=== PATIENT | female | born 1945 | race Caucasian/White ===

== ENCOUNTER 2021-10-20 19:09 | Inpatient (IN) ==
[2021-10-20] MEDS ORDERED: IOPAMIDOL 100 ML BOTTLE IV ONE (19:10)
--- NOTE | 2021-10-20 19:11 | Emergency Department Note ---
HPI General Chief complaint: Altered Mental Status Stated complaint: lethargy Time Seen by Provider: 10/20/21 19:11 Source: patient Mode of arrival: ambulatory Limitations: no limitations History of Present Illness HPI Narrative: 75-year-old female with past medical history of CHF with pacemaker and CKD presenting with generalized weakness. Family and patient have noted she has felt more generally weak and unsteady on her feet for the last week. Family was concerned so encouraged her to come to the ED. Patient states she had a fall a few months ago but no recent falls. Not on anticoagulation. She is on t razodone and lorazepam at night, family concerned this may be causing her change in mental status. No fever, cough, chest pain, abdominal pain, vomiting, dysuria, hematuria, or leg swelling. Denies prior history of IA or CVA. No other complaints. Related Data Home Medications Medication Instructions Recorded Confirmed carvedilol 3.125 mg tablet 3.125 mg PO BID 03/31/18 10/15/21 cranberry 400 mg capsule 400 mg PO QDAY 03/08/19 10/15/21 vit A 1,000 unit-C 200 mg-E 60 1 tab PO QDAY 03/08/19 10/15/21 unit-lutein 2 mg and minerals tablet (Vision Formula (with lutein)) cholecalciferol (vitamin D3) 50 2,000 unit PO QDAY cap 04/07/19 10/15/21 mcg (2,000 unit) capsule calcium carbonate 500 mg calcium 500 mg PO QDAY 04/23/21 10/15/21 (1,250 mg) tablet (Calcium 500) mirtazapine 15 mg tablet (Remeron) 15 mg PO QHS tab 04/23/21 10/15/21 multivitamin 1 tab PO QDAY 04/23/21 10/15/21 desipramine 50 mg tablet 50 mg PO QDAY tab 08/02/21 10/15/21 topiramate 100 mg tablet 100 mg PO QDAY tab 08/02/21 10/15/21 budesonide 3 mg 9 mg PO QDAY 10/15/21 10/15/21 capsule,delayed,extended release buspirone 5 mg tablet 5 mg PO BID 10/15/21 10/15/21 lorazepam 0.5 mg tablet 0.5 mg PO BID tab 10/15/21 10/15/21 trazodone 100 mg tablet 100 mg PO QHS tab 10/15/21 10/15/21 Previous Rx's Medication Instructions Recorded diphenoxylate-atropine 2.5 1 - 2 tab PO TID PRN #30 tab 05/13/21 mg-0.025 mg tablet (Lomotil) spironolactone 50 mg tablet 50 mg PO QAM #90 tab 08/02/21 famotidine 40 mg tablet 40 mg PO QDAY #90 tab 09/09/21 Allergies Allergy/AdvReac Type Severity Reaction Status Date / Time lactose Allergy Unknown Unknown Verified 10/20/21 19:13 spironolactone Allergy Unknown Diarrhea Verified 10/20/21 19:13 aspirin AdvReac Unknown Stomach Verified 10/20/21 19:13 pain, diarrhea Proton Pump Inhibitors AdvReac Worsening Verified 10/20/21 19:13 Collagenous Colitis Review of Systems ROS ROS Narrative: Narrative: Constitutional: Denies fever or chills Eyes: Denies vision change ENT ED: Denies throat pain Cardiovascular: Denies chest pain or palpitations Respiratory: Denies shortness of breath or cough Gastrointestinal: Denies abdominal pain, nausea or vomiting Genitourinary: Denies dysuria or frequency Musculoskeletal: Denies back pain or joint swelling Integumentary: Denies rash Neurological: Reports weakness; Denies headache, numbness or dizziness Psychiatric: Denies anxiety Endocrine: Reports fatigue Hematological/Lymphatic: Denies easy bleeding PFSH Narrative Patient History Narrative: Narrative: Medical/Surgical/Family History All Active Problems (Updated 10/21/21 @ 05:41 by Tre Gil MD) Otitis media (Chronic) Anemia (Chronic) Acid reflux (Chronic) Breast cancer (Chronic) Depression (Chronic) CHF (congestive heart failure) (Chronic) Insomnia (Chronic) Migraine (Chronic) Osteoporosis (Chronic) Collagenous colitis (Chronic) Geriatric health maintenance (Chronic) Vitamin D deficiency (Chronic) Hyperlipidemia (Chronic) Elevated serum creatinine (Chronic) Sinus infection (Chronic) RLS (restless legs syndrome) (Chronic) CKD (chronic kidney disease) (Chronic) LBBB (left bundle branch block) (Chronic) Dyspnea on exertion (Chronic) Peripheral cyanosis (Chronic) Cardiomyopathy (Chronic) Ulcerative colitis (Chronic) Cardiorenal syndrome with renal failure (Chronic) 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) Episode of syncope (Chronic) Cough secondary to angiotensin converting enzyme inhibitor (ANGELITA-I) (Chronic) Anxiety (Chronic) Hypokalemia with normal pH (Chronic) Hip bursitis, left (Chronic) CKD stage G3b/A2, GFR 30-44 and albumin creatinine ratio 30-299 mg/g (Chronic) Presence of cardiac defibrillator (Chronic) Chronic pain (Chronic) Low back pain (Chronic) Lumbar radiculopathy (Acute) Dizzy (Acute) Generalized weakness (Acute) Hyperbilirubinemia (Acute) UTI (urinary tract infection) (Acute) Pyuria (Acute) Medical History (Updated 10/21/21 @ 05:41 by Tre Gil MD) Acid reflux Anemia Anxiety Breast cancer 1978 Cardiomyopathy Cardiorenal syndrome with renal failure Great result with biventricular resynchronization therapy CHF (congestive heart failure) On ARB and low-dose beta-cinthia with loop diuretic PPM/AICD in place Chronic pain CKD (chronic kidney disease) Technically this is CKD G3 B/A2 on maximal ARB based on her systolic hypotension for renal protective and antiproteinuric effect Collagenous colitis Cough secondary to angiotensin converting enzyme inhibitor (ANGELITA-I) Stap ACEi Depression Dizzy Dyspnea on exertion Elevated serum creatinine Episode of syncope By Hx, vasovagal or post tussive or cardiogenic Fall Generalized weakness Geriatric health maintenance 08/2017 Hip bursitis, left History of tobacco use Hyperlipidemia Hypertensive heart and chronic kidney disease stage 3 Stable chronic kidney disease level III b Hypokalemia with normal pH Insomnia LBBB (left bundle branch block) Low back pain Lumbar radiculopathy Medicare annual wellness visit, initial Migraine Osteoporosis due to chemo, currently taking calcium and vitamin D 09/2016 Otitis media Peripheral cyanosis Presence of cardiac defibrillator Pyuria RLS (restless legs syndrome) Sinus infection Ulcerative colitis Vitamin D deficiency Surgical History H/O colonoscopy 2012 Dr. Kendrick, collagenous collitis repeat in 10 years H/O mastectomy 1979 Radical mastectomy with implant reconstruction revised 01/2016 H/O: hysterectomy Hx of breast implant 01/2016 Status post internal cardiac defibrillator procedure placed 11/2011 will have monthly interrogations due to being near the end of battery life Family History Mother Dementia Hypertension, essential Migraine Father Heart attack Grandmother Tuberculosis Maternal Social History Smoking Status: Former smoker Alcohol Intake Frequency: does not drink Substance Use: does not use Exam Narrative Narrative: Narrative: General Limitations: no limitations General appearance: Present alert and in no apparent distress Head Head: Present atraumatic and normocephalic Eye Eye: Present normal appearance, PERRL and EOMI; Absent scleral icterus, conjunctival injection or nystagmus ENT ENT: Present normal oropharynx and mucous membranes moist Neck Neck: Present normal inspection, full ROM and trachea midline; Absent meningismus or lymphadenopathy Chest Chest: Present symmetric chest wall rise Respiratory Respiratory: Present normal lung sounds bilaterally; Absent respiratory distress, wheezes, stridor, accessory muscle use or prolonged expiratory phase Cardiovascular Cardiovascular: Present regular rate and normal rhythm; Absent systolic murmur or diastolic murmur Adbominal Abdominal: Present soft; Absent distention, tenderness, guarding, rebound, rigidity, organomegaly or mass Extremities Extremities: Present normal inspection; Absent pretibial edema Back Back: Present normal inspection; Absent CVA tenderness (R), CVA tenderness (L) or spinous process tenderness Neurological Neurological: Present alert, oriented X3 and CN II-XII intact; Absent motor sensory deficit Expanded Neurological Patient oriented to: Present person, place and time Speech: Present fluid speech; Absent expressive aphasia or dysarthria CRANIAL NERVES: EOM function (II, III, IV, ): Normal, facial sensation (V): Normal, facial palsy (VII): Normal, gag reflex (IX): Normal, spinal accessory function (XI): Normal and tongue deviation (XII): Normal CEREBELLAR FUNCTION: finger to nose: Normal Motor strength - LUE: 5/5 Motor strength - RUE: 5/5 Motor strength - LLE: 5/5 Motor strength - RLE: 5/5 UPPER MOTOR NEURON EXAM: vangie neglect: Normal and pronator drift: Normal SENSORY EXAM UPPER EXTREMITY: Normal: light touch SENSORY EXAM LOWER EXTREMITY: Normal: light touch Coma Scale Eye Opening: Spontaneous Coma Scale Motor Response: Obeys Commands Coma Scale Verbal Response: Oriented Coma Scale Total: 15 Psychiatric Psychiatric: Present normal affect and normal mood Skin Skin: Present warm (WNL), dry and other (mild jaundice noted) Course Vital Signs Vital signs: Vital Signs Temperature 98.0 F 10/20/21 19:09 Pulse Rate 96 H 10/20/21 19:09 Respiratory Rate 20 10/20/21 19:09 Blood Pressure 145/69 10/20/21 19:09 Pulse Oximetry (%) 98 10/20/21 19:09 Temperature 98.0 F 10/20/21 19:09 Pulse Rate 98 H 10/21/21 06:00 Respiratory Rate 23 H 10/21/21 06:30 Blood Pressure 147/70 10/21/21 06:30 Pulse Oximetry (%) 99 10/21/21 06:00 MDM MDM Narrative Medical decision making narrative: 75-year-old female presenting with generalized weakness. Vital signs are normal, no fever or hypoxia. No focal neurologic deficits on exam. Will obtain labs, chest x-ray, UA, CT brain, EKG, and reevaluate. Labs notable for hyperbilirubinemia and elevated LFTs. CT of the abdomen obtained which shows marked biliary dilatation. UA shows signs of urinary infection, dose of IV Rocephin given. CT brain with no acute findings. Plan for admission for UTI and GI consultation as patient likely needs an MRCP or ERCP. GI will be available for consult later this morning, will continue to monitor the patient to the emergency department with the plan for consulting GI and admitting later this morning. 0650: Patient remains stable, GI consultation pending. Will sign out patient to oncoming , Dr. Browne. Lab Data Lab results reviewed: Yes I reviewed the patient's lab results. Result diagrams: 10/20/21 20:40 10/20/21 20:40 Labs: Lab Results 10/20/21 10/20/21 10/20/21 Range/Units 20:40 20:40 20:46 WBC 6.7 (4.5-11.0) K/mcL RBC 3.82 (3.59-5.38) M/mcL Hgb 11.6 (11.2-15.7) g/dL Hct 35.7 (34.1-44.9) % MCV 93.5 (80.0-100.0) fL MCH 30.4 (26.0-34.0) pg MCHC 32.5 (31.0-36.0) g/dL RDW 13.5 (11.5-14.5) % Plt Count 182 (140-440) K/mcL MPV 9.5 (7.4-10.4) fL Neut % (Auto) 75.8 (38.0-78.0) % Lymph % (Auto) 14.4 L (15.5-49.0) % Wolfe % (Auto) 9.0 (1.0-12.0) % Eos % (Auto) 0.3 (0.0-7.0) % Baso % (Auto) 0.5 (0.0-2.0) % Lymph # (Auto) 0.96 L (1.50-4.80) K/mcL Wolfe # (Auto) 0.60 (0.10-0.90) K/mcL Eos # (Auto) 0.02 (0.00-0.70) K/mcL Baso # (Auto) 0.03 (0.00-0.30) K/mcL Absolute Neutrophils 5.04 (1.80-8.00) K/mcL Sodium 136 (133-145) mmol/L Potassium 3.3 (3.3-5.1) mmol/L Chloride 104 (96-108) mmol/L Carbon Dioxide 21 L (22-30) mmol/L Anion Gap 11.0 (8.0-16.0) BUN 17 (8-23) mg/dL Creatinine 0.9 (0.6-1.1) mg/dL GFR Calculation 62 Glucose 102 (70-105) mg/dL Calcium 9.6 (8.6-10.4) mg/dL Total Bilirubin 5.0 H (0.1-1.0) mg/dL AST 328 H (<32) U/L ALT 151 H (<40) U/L Alkaline Phosphatase 151 H (39-117) U/L Total Protein 6.6 (5.9-8.4) gm/dL Albumin 3.8 (3.2-5.2) gm/dL Globulin 2.8 (2.2-3.7) gm/dL Albumin/Globulin Ratio 1.4 (1.0-2.3) Urine Color Stephanie Urine Appearance Cloudy A (Clear) Urine pH 6.0 (5.0-9.0) Ur Specific [place] 1.025 (1.000-1.035) Urine Protein 30 mg/dl A (Negative) mg/dL Urine Glucose (UA) Negative (Negative) mg/dL Urine Ketones Trace A (Negative) mg/dL Urine Occult Blood Negative (Negative) robert/mcL Urine Nitrate Negative (Negative) Urine Bilirubin Large A (Negative) mg/dL Urine Urobilinogen Normal mg/dL Ur Leukocyte Esterase Small A (Negative) /uL Urine RBC 0 (0-3) /hpf Urine WBC > 182 H (0-4) /hpf Ur Squamous Epith Cells 0 (0-4) /hpf Urine Bacteria Few A (0) /hpf Urine Mucus Few A (None) /hpf Ur Culture Indicated? yes Radiology Data Radiology results reviewed: Yes I reviewed the patient's radiology results. Radiology results narrative: CT brain without contrast: No acute intracranial abnormality, per outside radiology interpretation. CT abdomen and pelvis with contrast: Marked biliary ductal dilatation and significant distention of the gallbladder consistent with biliary obstruction, per outside radiology interpretation. EKG Data EKG #1: EKG attestation: Yes I reviewed and interpreted this EKG. and Yes There a re no EKG findings of acute coronary syndrome EKG results narrative: Ventricular paced rhythm at [address] elevation or depression. Interpretation: no acute changes Discharge Plan Patient/Caregiver Discharge Instructions Pt seen by PACKAGE LINER/PA only: No Clinical Impression: Hyperbilirubinemia, UTI (urinary tract infection) Patient Disposition: Still a Patient Condition: Fair Follow up with: Ulisses Colon MD [Primary Care Provider] - Prescriptions: No Action famotidine 40 mg tablet 40 mg PO QDAY Qty: 90 3RF Rx Instructions: New dose calcium carbonate [Calcium 500] 500 mg calcium (1,250 mg) tablet 500 mg PO QDAY 0RF multivitamin Tablet 1 tab PO QDAY 0RF trazodone 100 mg tablet 100 mg PO QHS 0RF lorazepam 0.5 mg tablet 0.5 mg PO BID 0RF diphenoxylate-atropine [Lomotil] 2.5-0.025 mg tablet 1 - 2 tab PO TID PRN (Reason: diarrhea) Qty: 30 0RF buspirone 5 mg tablet 5 mg PO BID 0RF budesonide 3 mg capsule,delayed,extend.release 9 mg PO QDAY 0RF cholecalciferol (vitamin D3) 2,000 unit capsule 2,000 unit PO QDAY 0RF carvedilol 3.125 mg tablet 3.125 mg PO BID 0RF Vision Formula (with lutein) 1,000 unit-200 mg-60 unit-2 mg tablet 1 tab PO QDAY 0RF cranberry 400 mg capsule 400 mg PO QDAY 0RF mirtazapine [Remeron] 15 mg tablet 15 mg PO QHS 0RF topiramate 100 mg tablet 100 mg PO QDAY 0RF Label Comments: Managed by Kathleen Carrillo desipramine 50 mg tablet 50 mg PO QDAY 0RF spironolactone 50 mg tablet 50 mg PO QAM Qty: 90 3RF Rx Instructions: Replaces Furosemide
[2021-10-20] MEDS ORDERED: 0.9 % SODIUM CHLORIDE 1,000 ML IV SCH (20:00)
[2021-10-20 21:16] LABS: Basophils # (Auto) 0.03 K/mcL (0.00-0.30); Basophils % (Auto) 0.5 % (0.0-2.0); Eosinophils # (Auto) 0.02 K/mcL (0.00-0.70); Eosinophils % (Auto) 0.3 % (0.0-7.0); Hematocrit 35.7 % (34.1-44.9); Hemoglobin 11.6 g/dL (11.2-15.7); Lymphocytes # (Auto) 0.96 K/mcL (1.50-4.80); Lymphocytes % (Auto) 14.4 % (15.5-49.0); Mean Cell Volume 93.5 fL (80.0-100.0); Mean Corpuscular HGB Conc 32.5 g/dL (31.0-36.0); Mean Platelet Volume 9.5 fL (7.4-10.4); Neutrophils % (Auto) 75.8 % (38.0-78.0); Platelet Count 182 K/mcL (140-440); RBC 3.82 M/mcL (3.59-5.38); Red Cell Distribution Width 13.5 % (11.5-14.5); WBC 6.7 K/mcL (4.5-11.0)
[2021-10-20 21:25] LABS: Appearance,Urine Cloudy (Clear); Bacteria,Urine FEW /hpf (0); Bilirubin,Urine Large mg/dL (Negative); Color,Urine Amber; Culture Indicated,Urine yes; Glucose,Urine (UA) Negative (Negative); Ketones,Urine Trace mg/dL (Negative); Leukocyte Esterase,Urine Small /uL (Negative); Mucus,Urine FEW /hpf; Nitrate,Urine Negative (Negative); Specific Gravity,Urine 1.025 (1.000-1.035); Urine Blood Negative ery/mcL (Negative); Urine RBC 0 /hpf (0-3); Urine Squamous Epithelial Cell 0 /hpf (0-4); Urine WBC > 182 /hpf (0-4); Urobilinogen,Urine Normal
[2021-10-20 21:42] LABS: ALT/SGPT 151 U/L (<40); AST/SGOT 328 U/L (<32); Albumin 3.8 gm/dL (3.2-5.2); Albumin/Globulin Ratio 1.4 (1.0-2.3); Alkaline Phosphatase 151 U/L (39-117); Blood Urea Nitrogen 17 mg/dL (8-23); Calcium 9.6 mg/dL (8.6-10.4); Carbon Dioxide 21 mmol/L (22-30); Chloride 104 mmol/L (96-108); Globulin 2.8 gm/dL (2.2-3.7); Glomerular Filtration Rate 62; Glucose 102 mg/dL (70-105)
[2021-10-20] MEDS ORDERED: cefTRIAXone 1 GM VIAL IV ONE (22:05)
--- NOTE | 2021-10-21 03:05 | XRay Report ---
CLINICAL INFORMATION: Acute mental status change and weakness COMPARISON: 06/12/2013 TECHNIQUE: Portable FINDINGS: Mild cardiomegaly is no. Implantable cardioverter defibrillator is in satisfactory position without evidence of complication. Small hiatal hernia noted. Mediastinum and pulmonary vessels are normal. The lungs are clear. IMPRESSION: Mild cardiomegaly. No CHF or other acute process. Small hiatal hernia Interpreted and Authenticated by: Julian Luevano 10/21/21
--- NOTE | 2021-10-21 03:19 | Cat Scan Report ---
CLINICAL INFORMATION: Acute mental status change weakness COMPARISON: None. TECHNIQUE: 2.5 mm helical slices were obtained in the skull base to vertex. Following reconstruction, axial reformatted images were reviewed at bone and parenchymal windows. The exam was performed using radiation dose optimization techniques including, but not limited to, automated exposure control, adjustment of the mA and/or kV according to patient size and use of iterative reconstruction technique. FINDINGS: The ventricles, sulci, fissures, and cisterns are symmetrically enlarged compatible with mild age-related atrophy. No extra-axial fluid collections are identified. Mild patchy chronic ischemic changes, in the deep cerebral white matter, are expected for age. There is no hemorrhage, mass effect, or edema. Bone windows show no osseous abnormality. IMPRESSION: Mild atrophy and chronic ischemic changes in the deep cerebral white matter-expected for age. No acute findings Fluid within the inferior right mastoid air cells compatible with mild mastoiditis Interpreted and Authenticated by: Julian Luevano 10/21/21
--- NOTE | 2021-10-21 03:44 | Cat Scan Report ---
CLINICAL INFORMATION: Bilirubinemia elevated LFTs COMPARISON: 07/04/[address] TECHNIQUE: Following enteric contrast, 80 cc of Isovue-[id number] were injected intravenously, and 60 seconds later, 0.625 mm helical slices were obtained from the mid heart through the subtrochanteric regions. Following reconstruction, 2.5 mm sagittal, coronal and axial reformatted images were processed and reviewed at bone, lung and soft tissue windows. Five minutes later, 0.625 mm helical slices were obtained from the mid heart through the kidneys and viewed at soft tissue windows.The exam was performed using radiation dose optimization techniques including, but not limited to, automated exposure control, adjustment of the mA and/or kV according to patient size and use of iterative reconstruction technique. FINDINGS: Lung bases show a 9 mm pleural-based nodule in the medial basilar segment of the left lower lobe on image 21. It is unchanged from the 2011 exam. This should be considered a benign granuloma. Minimal scattered subsegmental atelectasis appreciated. No effusions. The heart is mildly enlarged with pacemaker leads in satisfactory position. Scattered calcific plaques in the coronary arteries. A moderate-sized hiatal hernia has developed since the previous exam. Abdominal images show the liver is normal size with diffuse fatty change. A 18 mm classic benign hemangioma posterior segment of the right hepatic lobe is unchanged from the 2011 exam. A few small cysts, ranging up to 10 mm in the lateral segment left hepatic lobe, also stable. No solid hepatic lesions. Marked dilatation of intrahepatic, common hepatic and common bile duct at the ampullary level is appreciated. The common bile duct diameter 17 mm. There is no CT evidence of mass or stone in the distal common bile duct. The gallbladder is massively enlarged with a length of 16 cm. The pancreas is normal in size and attenuation. Pancreatic duct is also markedly dilated colon 4 mm. A 9 mm simple cyst noted mid left kidney. No significant renal abnormality. Both adrenal glands and spleen are normal. The aorta is normal diameter with scattered fibrofatty calcific plaque. There is no free air, free fluid or adenopathy. Pelvic images show hysterectomy and oophorectomy changes. Urinary bladder is normal. The stomach, small bowel, appendix region and large bowel are grossly normal. Bone windows show no osseous abnormality. Bilateral breast implants are grossly normal. IMPRESSION: Marked dilatation of the intrahepatic, common hepatic and common bile ducts and the pancreatic duct to the ampullary level. There is no evidence of mass, stone or other etiology for distal common bile duct obstruction. 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 Suggest GI referral for ERCP for both more specific diagnosis and treatment. Abdominal MRI /MRCP could be considered as well. 18 mm benign hemangioma in the posterior segment of the right hepatic lobe stable since 2010 CT 9 mm benign granuloma medial basilar segment left lower lobe also stable Moderate hiatal hernia-new. Interpreted and Authenticated by: Julian Luevano 10/21/21
[2021-10-21] MEDS ORDERED: 0.9 % SODIUM CHLORIDE 1,000 ML BAG IV SCH (05:30)
--- NOTE | 2021-10-21 07:08 | Emergency Department Note ---
Course Course Course Narrative: And is apresents with weakness some ams. Bili [address]. [address] brain negative. fluids rocephin. biliary dilatation. possible Choledocholithiasis versus Underlying neoplasm. I spoke with Dr. Omalley he is agreeable to be consulted and initial plan was to perform MRCP however the patient has a pacemaker and is unable to get an MRI. Dr. Omalley will perform ERCP. Patient will be admitted to the hospitalist. Vital Signs Vital signs: Vital Signs Temperature 98.0 F 10/20/21 19:09 Pulse Rate 96 H 10/20/21 19:09 Respiratory Rate 20 10/20/21 19:09 Blood Pressure 145/69 10/20/21 19:09 Pulse Oximetry (%) 98 10/20/21 19:09 Temperature 98.3 F 10/21/21 11:26 Pulse Rate 96 H 10/21/21 11:26 Respiratory Rate 16 10/21/21 11:26 Blood Pressure 140/73 10/21/21 11:26 Pulse Oximetry (%) 98 10/21/21 11:26 MDM MDM Narrative Medical decision making narrative: Narrative: Lab Data Result diagrams: 10/20/21 20:40 10/20/21 20:40 Labs: Lab Results 10/20/21 10/20/21 10/20/21 Range/Units 20:40 20:40 20:46 WBC 6.7 (4.5-11.0) K/mcL RBC 3.82 (3.59-5.38) M/mcL Hgb 11.6 (11.2-15.7) g/dL Hct 35.7 (34.1-44.9) % MCV 93.5 (80.0-100.0) fL MCH 30.4 (26.0-34.0) pg MCHC 32.5 (31.0-36.0) g/dL RDW 13.5 (11.5-14.5) % Plt Count 182 (140-440) K/mcL MPV 9.5 (7.4-10.4) fL Neut % (Auto) 75.8 (38.0-78.0) % Lymph % (Auto) 14.4 L (15.5-49.0) % [place] % (Auto) 9.0 (1.0-12.0) % Eos % (Auto) 0.3 (0.0-7.0) % Baso % (Auto) 0.5 (0.0-2.0) % Lymph # (Auto) 0.96 L (1.50-4.80) K/mcL [place] # (Auto) 0.60 (0.10-0.90) K/mcL Eos # (Auto) 0.02 (0.00-0.70) K/mcL Baso # (Auto) 0.03 (0.00-0.30) K/mcL Absolute Neutrophils 5.04 (1.80-8.00) K/mcL Sodium 136 (133-145) mmol/L Potassium 3.3 (3.3-5.1) mmol/L Chloride 104 (96-108) mmol/L Carbon Dioxide 21 L (22-30) mmol/L Anion Gap 11.0 (8.0-16.0) BUN 17 (8-23) mg/dL Creatinine 0.9 (0.6-1.1) mg/dL GFR Calculation 62 Glucose 102 (70-105) mg/dL Calcium 9.6 (8.6-10.4) mg/dL Total Bilirubin 5.0 H (0.1-1.0) mg/dL AST 328 H (<32) U/L ALT 151 H (<40) U/L Alkaline Phosphatase 151 H (39-117) U/L Total Protein 6.6 (5.9-8.4) gm/dL Albumin 3.8 (3.2-5.2) gm/dL Globulin 2.8 (2.2-3.7) gm/dL Albumin/Globulin Ratio 1.4 (1.0-2.3) Urine Color Stephanie Urine Appearance Cloudy A (Clear) Urine pH 6.0 (5.0-9.0) Ur Specific [place] 1.025 (1.000-1.035) Urine Protein 30 mg/dl A (Negative) mg/dL Urine Glucose (UA) Negative (Negative) mg/dL Urine Ketones Trace A (Negative) mg/dL Urine Occult Blood Negative (Negative) robert/mcL Urine Nitrate Negative (Negative) Urine Bilirubin Large A (Negative) mg/dL Urine Urobilinogen Normal mg/dL Ur Leukocyte Esterase Small A (Negative) /uL Urine RBC 0 (0-3) /hpf Urine WBC > 182 H (0-4) /hpf Ur Squamous Epith Cells 0 (0-4) /hpf Urine Bacteria Few A (0) /hpf Urine Mucus Few A (None) /hpf Ur Culture Indicated? yes ED POC Tests ED POC Tests: BRIAN - SARS Antigen Negative Discharge Plan Patient/Caregiver Discharge Instructions Pt seen by MANAGER MASSAGE DEPARTMENT/PA only: No Clinical Impression: Hyperbilirubinemia, UTI (urinary tract infection) Patient Disposition: Still a Patient Condition: Fair Discharge Date/Time: 10/21/21 11:12
[2021-10-21] MEDS ORDERED: SENNOSIDES 1 TABLET PO PRN (11:02)
[2021-10-21] MEDS ORDERED: ONDANSETRON 4 MG/2 ML VIAL IV PRN ×2 (11:02→11:57)
[2021-10-21] MEDS ORDERED: POLYETHYLENE GLYCOL 3350 17 GM PACKET PO PRN (11:02)
[2021-10-21] MEDS ORDERED: POTASSIUM CHLORIDE 20 MEQ TABLET PO PRN (11:02)
[2021-10-21] MEDS ORDERED: POTASSIUM CHLORIDE 40 MEQ in DEXTROSE 5% IN WATER 500 ML IV PRN (11:02)
[2021-10-21] MEDS ORDERED: IPRATROPIUM/ALBUTEROL 3 ML AMPUL.NEB NEB PRN (11:02)
[2021-10-21] MEDS ORDERED: MAGNESIUM SULFATE 2 GM/50 ML BAG IV PRN (11:02)
--- NOTE | 2021-10-21 11:02 | Internal Med History&Physical ---
HPI History of Present Illness Patient information: Note initiated : 10/21/21 at 10:55 am Service Date, if different from initiated Date: [] Patient: Stephanie Chambers a 75 y/o F admitted on for lethargy. Chief Complaint: [] History of present illness: Ms. Chambers is a 75 year old F Presents the ED with her daughter for generalized weakness and malaise. Per the daughter she seems to have some confusion. Daughter worries about the patient not taking her home medications correctly. Patient denies fever chills or abdominal pain. No nausea vomiting or diarrhea. Patient evaluated in ED and found to have painless jaundice with a bilirubin of 5. Elevated transaminases. CT abdomen pelvis showed intrahepatic biliary dilatation. Dr. Omalley was contacted. Patient unable to go for MRCP's so we will go straight to ERCP. Daughter says her urine has been malodorous and strong lately. Urinalysis in the ED concerning for infection. Review of Systems: Pertinent positives as above. Denies headache/fever/chills/nausea/vomiting/chest or abdominal pain/cough/dyspnea/diarrhea. Many 10 point review of system reviewed negative PFSH PFSH All Active Problems (Updated 10/21/21 @ 05:41 by Tre Gil MD) Otitis media (Chronic) Anemia (Chronic) Acid reflux (Chronic) Breast cancer (Chronic) Depression (Chronic) CHF (congestive heart failure) (Chronic) Insomnia (Chronic) Migraine (Chronic) Osteoporosis (Chronic) Collagenous colitis (Chronic) Geriatric health maintenance (Chronic) Vitamin D deficiency (Chronic) Hyperlipidemia (Chronic) Elevated serum creatinine (Chronic) Sinus infection (Chronic) RLS (restless legs syndrome) (Chronic) CKD (chronic kidney disease) (Chronic) LBBB (left bundle branch block) (Chronic) Dyspnea on exertion (Chronic) Peripheral cyanosis (Chronic) Cardiomyopathy (Chronic) Ulcerative colitis (Chronic) Cardiorenal syndrome with renal failure (Chronic) 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) Episode of syncope (Chronic) Cough secondary to angiotensin converting enzyme inhibitor (ANGELITA-I) (Chronic) Anxiety (Chronic) Hypokalemia with normal pH (Chronic) Hip bursitis, left (Chronic) CKD stage G3b/A2, GFR 30-44 and albumin creatinine ratio 30-299 mg/g (Chronic) Presence of cardiac defibrillator (Chronic) Chronic pain (Chronic) Low back pain (Chronic) Lumbar radiculopathy (Acute) Dizzy (Acute) Generalized weakness (Acute) Hyperbilirubinemia (Acute) UTI (urinary tract infection) (Acute) Pyuria (Acute) Medical History (Updated 10/21/21 @ 05:41 by Tre Gil MD) Acid reflux Anemia Anxiety Breast cancer 1978 Cardiomyopathy Cardiorenal syndrome with renal failure Great result with biventricular resynchronization therapy CHF (congestive heart failure) On ARB and low-dose beta-cinthia with loop diuretic PPM/AICD in place Chronic pain CKD (chronic kidney disease) Technically this is CKD G3 B/A2 on maximal ARB based on her systolic hypotension for renal protective and antiproteinuric effect Collagenous colitis Cough secondary to angiotensin converting enzyme inhibitor (ANGELITA-I) Stap ACEi Depression Dizzy Dyspnea on exertion Elevated serum creatinine Episode of syncope By Hx, vasovagal or post tussive or cardiogenic Fall Generalized weakness Geriatric health maintenance 08/2017 Hip bursitis, left History of tobacco use Hyperlipidemia Hypertensive heart and chronic kidney disease stage 3 Stable chronic kidney disease level III b Hypokalemia with normal pH Insomnia LBBB (left bundle branch block) Low back pain Lumbar radiculopathy Medicare annual wellness visit, initial Migraine Osteoporosis due to chemo, currently taking calcium and vitamin D 09/2016 Otitis media Peripheral cyanosis Presence of cardiac defibrillator Pyuria RLS (restless legs syndrome) Sinus infection Ulcerative colitis Vitamin D deficiency Surgical History H/O colonoscopy 2012 Dr. Kendrick, collagenous collitis repeat in 10 years H/O mastectomy 1979 Radical mastectomy with implant reconstruction revised 01/2016 H/O: hysterectomy Hx of breast implant 01/2016 Status post internal cardiac defibrillator procedure placed 11/2011 will have monthly interrogations due to being near the end of battery life Family History Mother Dementia Hypertension, essential Migraine Father Heart attack Grandmother Tuberculosis Maternal Social History marital status: other: Children-2 smoking status: Former smoker alcohol intake frequency: does not drink substance use type: does not use MEDS/ALLERGIES Home Medications and Allergies Home Medications Medication Instructions Recorded Confirmed Type carvedilol 3.125 mg tablet 3.125 mg PO BID 03/31/18 10/15/21 History cranberry 400 mg capsule 400 mg PO QDAY 03/08/19 10/15/21 History vit A 1,000 unit-C 200 mg-E 60 1 tab PO QDAY 03/08/19 10/15/21 History unit-lutein 2 mg and minerals tablet (Vision Formula (with lutein)) cholecalciferol (vitamin D3) 50 2,000 unit PO QDAY cap 04/07/19 10/15/21 History mcg (2,000 unit) capsule calcium carbonate 500 mg calcium 500 mg PO QDAY 04/23/21 10/15/21 History (1,250 mg) tablet (Calcium 500) mirtazapine 15 mg tablet (Remeron) 15 mg PO QHS tab 04/23/21 10/15/21 History multivitamin 1 tab PO QDAY 04/23/21 10/15/21 History diphenoxylate-atropine 2.5 1 - 2 tab PO TID PRN #30 tab 05/13/21 10/15/21 Rx mg-0.025 mg tablet (Lomotil) desipramine 50 mg tablet 50 mg PO QDAY tab 08/02/21 10/15/21 History spironolactone 50 mg tablet 50 mg PO QAM #90 tab 08/02/21 10/15/21 Rx topiramate 100 mg tablet 100 mg PO QDAY tab 08/02/21 10/15/21 History famotidine 40 mg tablet 40 mg PO QDAY #90 tab 09/09/21 10/15/21 Rx budesonide 3 mg 9 mg PO QDAY 10/15/21 10/15/21 History capsule,delayed,extended release buspirone 5 mg tablet 5 mg PO BID 10/15/21 10/15/21 History lorazepam 0.5 mg tablet 0.5 mg PO BID tab 10/15/21 10/15/21 History trazodone 100 mg tablet 100 mg PO QHS tab 10/15/21 10/15/21 History Allergies Allergy/AdvReac Type Severity Reaction Status Date / Time lactose Allergy Unknown Unknown Verified 10/20/21 19:13 spironolactone Allergy Unknown Diarrhea Verified 10/20/21 19:13 aspirin AdvReac Unknown Stomach Verified 10/20/21 19:13 pain, diarrhea Proton Pump Inhibitors AdvReac Worsening Verified 10/20/21 19:13 Collagenous Colitis EXAM Constitutional Vitals: Temp Pulse Resp BP Pulse Ox 98.0 F 100 H 24 H 149/70 97 10/20/21 19:09 10/21/21 09:30 10/21/21 10:30 10/21/21 10:30 10/21/21 09:30 Exam: General: Alert, Awake, No acute Distress Eyes/N/T: EOMI, PERRL, scleral icterus Head/Neck: neck supple, normocephalic atraumatic CV: RRR, 1/6 SM, normal s1/s2 Pulm: Clear b/l, no wheezing/rhonchi/rales Abd: soft, nontender, +BS x4 Ext: no clubbing/cyanosis, trace b/l LE edema Neuro: Alert, no focal deficits, moves all extremities, CN 2-12 grossly intact, symmetrical strength b/l upper/lower, sensations intact b/l upper/lower Skin: warm/dry DATA Data Completed and Pending Labs: Labs from last 24 hours 10/20/21 10/20/21 10/20/21 20:46 20:40 20:40 WBC 6.7 RBC 3.82 Hgb 11.6 Hct 35.7 MCV 93.5 MCH 30.4 MCHC 32.5 RDW 13.5 Plt Count 182 MPV 9.5 Neut % (Auto) 75.8 Lymph % (Auto) 14.4 L [place] % (Auto) 9.0 Eos % (Auto) 0.3 Baso % (Auto) 0.5 Lymph # (Auto) 0.96 L [place] # (Auto) 0.60 Eos # (Auto) 0.02 Baso # (Auto) 0.03 Absolute Neutrophils 5.04 Sodium 136 Potassium 3.3 Chloride 104 Carbon Dioxide 21 L Anion Gap 11.0 BUN 17 Creatinine 0.9 GFR Calculation 62 Glucose 102 Calcium 9.6 Total Bilirubin 5.0 H AST 328 H ALT 151 H Alkaline Phosphatase 151 H Total Protein 6.6 Albumin 3.8 Globulin 2.8 Albumin/Globulin Ratio 1.4 Urine Color Stephanie Urine Appearance Cloudy A Urine pH 6.0 Ur Specific [place] 1.025 Urine Protein 30 mg/dl A Urine Glucose (UA) Negative Urine Ketones Trace A Urine Occult Blood Negative Urine Nitrate Negative Urine Bilirubin Large A Urine Urobilinogen Normal Ur Leukocyte Esterase Small A Urine RBC 0 Urine WBC > 182 H Ur Squamous Epith Cells 0 Urine Bacteria Few A Urine Mucus Few A Ur Culture Indicated? yes A/P Narrative A/P Narrative: A: *Painless jaundice w/intrahepatic/common hepatic/CBD dilatation: *UTI: *Generalized weakness: *CKD III: *Nonischemic-CMP, normalized with BiV pacer: *HTN: *Depression/anxiety: *GERD: *UC: on budesonide P: -Dr. Omalley for ERCP -Rocephin pending UC -cont gino BB, Aldactone,psych - -pt/ot -CM for placement -Home medication reconciliation -ppx: lovenox / home H2 Time Spent With Patient Time: Total time spent is greater than 50% in coordination of care (as documented) at patient's floor/unit and/or counseling patient:
[2021-10-21] MEDS ORDERED: cefTRIAXone 1 GM in DEXTROSE 5% IN WATER 50 ML IV SCH (11:15)
[2021-10-21] MEDS ORDERED: 0.9 % SODIUM CHLORIDE 1,000 ML IV SCH (11:15)
[2021-10-21] MEDS ORDERED: PROPOFOL 200 MG/20 ML VIAL IV ONE (11:57)
[2021-10-21] MEDS ORDERED: LACTATED RINGERS 1,000 ML IV SCH ×2 (12:00)
[2021-10-21 12:28] LABS: Prothrombin Time 14.1 sec (11.9-14.5)
[2021-10-21 12:43] LABS: Bilirubin,Direct 3.7 mg/dL (<0.3)
[2021-10-21] MEDS ORDERED: cefTRIAXone 1 GM VIAL IV SCH ×2 (13:00→16:40)
--- NOTE | 2021-10-21 13:17 | Internal Medicine Consult Note ---
HPI Data of Consult Patient: new to practice Consult date: 10/21/21 Requesting physician: Zack Banegas Primary Care Provider: Ulisses Colon MD Consult Narrative Chief complaint: Painless jaundice, weight loss, dilated CBD History of present illness: Ms Chambers is a 75 year old female who presented to the ED for a one month history of increasing weakness, malaise and 10lb weight loss in the setting of painless jaundice. She denies any new medications. Her memory is poor so I also spoke to her daughter Tabby by phone who says the patient has not reported any pain. She retains her gallbladder. CT in ER showed CBD 17mm with PD 4mm and total bilirubin 5 with elevated transaminases AST 328/ALT 151. ALP 151. cc:: CC: Zack Banegas PFSH PFSH All Active Problems (Updated 10/21/21 @ 13:14 by ADRYAN Moy) Jaundice (Acute) Otitis media (Chronic) Anemia (Chronic) Acid reflux (Chronic) Breast cancer (Chronic) Depression (Chronic) CHF (congestive heart failure) (Chronic) Insomnia (Chronic) Migraine (Chronic) Osteoporosis (Chronic) Collagenous colitis (Chronic) Geriatric health maintenance (Chronic) Vitamin D deficiency (Chronic) Hyperlipidemia (Chronic) Elevated serum creatinine (Chronic) Sinus infection (Chronic) RLS (restless legs syndrome) (Chronic) CKD (chronic kidney disease) (Chronic) LBBB (left bundle branch block) (Chronic) Dyspnea on exertion (Chronic) Peripheral cyanosis (Chronic) Cardiomyopathy (Chronic) Ulcerative colitis (Chronic) Cardiorenal syndrome with renal failure (Chronic) 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) Episode of syncope (Chronic) Cough secondary to angiotensin converting enzyme inhibitor (ANGELITA-I) (Chronic) Anxiety (Chronic) Hypokalemia with normal pH (Chronic) Hip bursitis, left (Chronic) CKD stage G3b/A2, GFR 30-44 and albumin creatinine ratio 30-299 mg/g (Chronic) Presence of cardiac defibrillator (Chronic) Chronic pain (Chronic) Low back pain (Chronic) Lumbar radiculopathy (Acute) Dizzy (Acute) Generalized weakness (Acute) Hyperbilirubinemia (Acute) UTI (urinary tract infection) (Acute) Pyuria (Acute) Medical History (Updated 10/21/21 @ 13:14 by LUAN MoyP) Acid reflux Anemia Anxiety Breast cancer 1978 Cardiomyopathy Cardiorenal syndrome with renal failure Great result with biventricular resynchronization therapy CHF (congestive heart failure) On ARB and low-dose beta-cinthia with loop diuretic PPM/AICD in place Chronic pain CKD (chronic kidney disease) Technically this is CKD G3 B/A2 on maximal ARB based on her systolic hypotension for renal protective and antiproteinuric effect Collagenous colitis Cough secondary to angiotensin converting enzyme inhibitor (ANGELITA-I) Stap ACEi Depression Dizzy Dyspnea on exertion Elevated serum creatinine Episode of syncope By Hx, vasovagal or post tussive or cardiogenic Fall Generalized weakness Geriatric health maintenance 08/2017 Hip bursitis, left History of tobacco use Hyperlipidemia Hypertensive heart and chronic kidney disease stage 3 Stable chronic kidney disease level III b Hypokalemia with normal pH Insomnia Jaundice LBBB (left bundle branch block) Low back pain Lumbar radiculopathy Medicare annual wellness visit, initial Migraine Osteoporosis due to chemo, currently taking calcium and vitamin D 09/2016 Otitis media Peripheral cyanosis Presence of cardiac defibrillator Pyuria RLS (restless legs syndrome) Sinus infection Ulcerative colitis Vitamin D deficiency Surgical History H/O colonoscopy 2012 Dr. Kendrick, collagenous collitis repeat in 10 years H/O mastectomy 1979 Radical mastectomy with implant reconstruction revised 01/2016 H/O: hysterectomy Hx of breast implant 01/2016 Status post internal cardiac defibrillator procedure placed 11/2011 will have monthly interrogations due to being near the end of battery life Family History Mother Dementia Hypertension, essential Migraine Father Heart attack Grandmother Tuberculosis Maternal Social History marital status: other: Children-2 smoking status: Former smoker alcohol intake frequency: does not drink substance use type: does not use MEDS/ALLERGIES Home Medications and Allergies Home Medications Medication Instructions Recorded Confirmed Type carvedilol 3.125 mg tablet 3.125 mg PO BID 03/31/18 10/21/21 History mirtazapine 15 mg tablet (Remeron) 15 mg PO QHS tab 04/23/21 10/21/21 History multivitamin 1 tab PO QDAY 04/23/21 10/21/21 History desipramine 50 mg tablet 50 mg PO QHS tab 08/02/21 10/21/21 History topiramate 100 mg tablet 100 mg PO QDAY tab 08/02/21 10/21/21 History famotidine 40 mg tablet 40 mg PO QDAY #90 tab 09/09/21 10/21/21 Rx lorazepam 0.5 mg tablet 0.5 mg PO BID tab 10/15/21 10/21/21 History trazodone 100 mg tablet 100 mg PO QHS tab 10/15/21 10/21/21 History diphenoxylate-atropine 2.5 1 - 2 tab PO QIDP PRN 10/21/21 10/21/21 History mg-0.025 mg tablet (Lomotil) Allergies Allergy/AdvReac Type Severity Reaction Status Date / Time lactose Allergy Unknown Unknown Verified 10/20/21 19:13 Proton Pump Inhibitors AdvReac Intermediate Worsening Verified 10/21/21 11:10 Collagenous Colitis aspirin AdvReac Mild Stomach Verified 10/21/21 11:10 pain, diarrhea spironolactone AdvReac Mild Diarrhea Verified 10/21/21 11:10 EXAM Constitutional Vitals: Temp Pulse Resp BP Pulse Ox 98.3 F 96 H 16 140/73 98 10/21/21 11:26 10/21/21 11:26 10/21/21 11:26 10/21/21 11:26 10/21/21 11:26 General appearance: average body habitus, cooperative and no acute distress Head Head exam: Present atraumatic, normal inspection and normocephalic Eye Eye exam: Present normal appearance ENT ENT exam: Present mucous membranes moist Neck Neck exam: Present normal inspection Respiratory Respiratory exam: Present normal respiratory exam Neurological Exam Neurological exam: Present alert Psychiatric Psychiatric exam: Present anxious Skin Additional comments: mild icteric sclerae DATA Data Completed and Pending Labs: Labs from last 24 hours 10/21/21 10/21/21 10/20/21 11:32 11:32 20:46 WBC RBC Hgb Hct MCV MCH MCHC RDW Plt Count MPV Neut % (Auto) Lymph % (Auto) [place] % (Auto) Eos % (Auto) Baso % (Auto) Lymph # (Auto) [place] # (Auto) Eos # (Auto) Baso # (Auto) Absolute Neutrophils PT 14.1 INR 1.0 Sodium Potassium Chloride Carbon Dioxide Anion Gap BUN Creatinine GFR Calculation Glucose Calcium Total Bilirubin Direct Bilirubin 3.7 H AST ALT Alkaline Phosphatase Total Protein Albumin Globulin Albumin/Globulin Ratio Urine Color Stephanie Urine Appearance Cloudy A Urine pH 6.0 Ur Specific [place] 1.025 Urine Protein 30 mg/dl A Urine Glucose (UA) Negative Urine Ketones Trace A Urine Occult Blood Negative Urine Nitrate Negative Urine Bilirubin Large A Urine Urobilinogen Normal Ur Leukocyte Esterase Small A Urine RBC 0 Urine WBC > 182 H Ur Squamous Epith Cells 0 Urine Bacteria Few A Urine Mucus Few A Ur Culture Indicated? yes 10/20/21 10/20/21 20:40 20:40 WBC 6.7 RBC 3.82 Hgb 11.6 Hct 35.7 MCV 93.5 MCH 30.4 MCHC 32.5 RDW 13.5 Plt Count 182 MPV 9.5 Neut % (Auto) 75.8 Lymph % (Auto) 14.4 L [place] % (Auto) 9.0 Eos % (Auto) 0.3 Baso % (Auto) 0.5 Lymph # (Auto) 0.96 L [place] # (Auto) 0.60 Eos # (Auto) 0.02 Baso # (Auto) 0.03 Absolute Neutrophils 5.04 PT INR Sodium 136 Potassium 3.3 Chloride 104 Carbon Dioxide 21 L Anion Gap 11.0 BUN 17 Creatinine 0.9 GFR Calculation 62 Glucose 102 Calcium 9.6 Total Bilirubin 5.0 H Direct Bilirubin AST 328 H ALT 151 H Alkaline Phosphatase 151 H Total Protein 6.6 Albumin 3.8 Globulin 2.8 Albumin/Globulin Ratio 1.4 Urine Color Urine Appearance Urine pH Ur Specific [place] Urine Protein Urine Glucose (UA) Urine Ketones Urine Occult Blood Urine Nitrate Urine Bilirubin Urine Urobilinogen Ur Leukocyte Esterase Urine RBC Urine WBC Ur Squamous Epith Cells Urine Bacteria Urine Mucus Ur Culture Indicated? Preliminary micro results at discharge 10/20/21 20:46 Urine Culture - Preliminary Urine - Catheterized Gram negative bacillus A/P Assessment and plan (1) Jaundice: Status: Acute Narrative A/P Narrative: I reviewed her case with Dr. Plummer. She is not a candidate for MRCP due to her ACID. EUS is not available locally and the daughter is not interested in attempting transfer to another hospital. Therefore, we will proceed with ERCP. Differential diagnosis includes common duct stone, papillary stenosis, biliary tract or pancreatic malignancy among others. Hepatitis or drug induced liver injury possible, but less likely in the setting of a dilated common bile duct. I described the procedure's purpose using an illustration. Both the patient and her daughter were counseled about the possible risks of pancreatitis, bleeding, infection and perforation and agree to proceed. Time Spent With Patient Time: Total time spent is greater than 50% in coordination of care (as documented) at patient's floor/unit and/or counseling patient: Total time spent with greater than 50% in coordination of care (as documented) at patient's floor/unit and/or counseling patient:: 15 - 24 minutes
[2021-10-21] MEDS ORDERED: DEXTROSE 50% 50 ML VIAL IV ONE ×2 (13:56→13:58)
[2021-10-21] MEDS: 0.9 % SODIUM CHLORIDE 10 ML SYRINGE IV SCH ×2 (14:07→21:09)
[2021-10-21] MEDS ORDERED: NITROGLYCERIN 0.6 MG/HR PATCH TD ONE (14:15)
[2021-10-21] MEDS ORDERED: INDOMETHACIN 25 MG CAPSULE PO ONE (14:15)
[2021-10-21] MEDS ORDERED: MIDAZOLAM 2 MG/2 ML VIAL IV ONE (15:00)
[2021-10-21] MEDS ORDERED: LORazepam 0.5 MG TABLET PO PRN (16:42)
[2021-10-21] MEDS ORDERED: IOPAMIDOL 50 ML BOTTLE IJ ONE (16:42)
[2021-10-21] MEDS ORDERED: GENTAMICIN SULFATE 800 MG/20 ML VIAL IR ONE (16:43)
[2021-10-21] MEDS ORDERED: metroNIDAZOLE 500 MG/100 ML BAG IV SCH (17:00)
[2021-10-21] MEDS: CARVEDILOL 3.125 MG TABLET PO SCH (17:23)
--- NOTE | 2021-10-21 17:26 | EKG ---
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 Measurements Intervals [place] Rate: 85 P: 55 IN: 146 QRS: -26 QRSD: 128 T: 132 QT: 376 QTc: 447 Interpretive Statements Atrial-sensed ventricular-paced rhythm No further analysis attempted due to paced rhythm Electronically Signed On 10-21-2021 17:25:50 PST by Vielka Reyes D.O. /[id number]
[2021-10-21] MEDS: LACTATED RINGERS 1,000 ML IV SCH ×2 (17:28→20:33)
[2021-10-21] MEDS ORDERED: CLINDAMYCIN 600 MG in DEXTROSE 5% IN WATER 50 ML IV SCH (18:45)
[2021-10-21] MEDS ORDERED: HYDROmorphone 0.5 MG/0.5 ML SYRINGE IV PRN (19:00)
[2021-10-21] MEDS ORDERED: HYDROcodone/APAP 5/325MG TABLET PO PRN (19:01)
[2021-10-21] MEDS: DOCUSATE SODIUM 100 MG CAPSULE PO SCH (20:16)
[2021-10-21] MEDS: traZODone HCL 100 MG TABLET PO SCH (20:16)
[2021-10-21] MEDS: DESIPRAMINE 25 MG TABLET PO SCH (20:18)
[2021-10-21] MEDS: MIRTAZAPINE 15 MG TABLET PO SCH (20:18)
[2021-10-21] MEDS ORDERED: CLINDAMYCIN 600 MG/4 ML VIAL ONE (22:07)
[2021-10-21] MEDS: CLINDAMYCIN 600 MG in DEXTROSE 5% IN WATER 50 ML IV SCH (22:12)
[2021-10-22] MEDS: LACTATED RINGERS 1,000 ML IV SCH ×2 (04:15→10:13)
[2021-10-22] MEDS: CLINDAMYCIN 600 MG in DEXTROSE 5% IN WATER 50 ML IV SCH ×2 (05:06→14:38)
[2021-10-22] MEDS ORDERED: CLINDAMYCIN 600 MG/4 ML VIAL ONE (05:07)
[2021-10-22] MEDS: 0.9 % SODIUM CHLORIDE 10 ML SYRINGE IV SCH ×3 (05:32→21:17)
[2021-10-22 07:30] LABS: ALT/SGPT 107 U/L (<40); AST/SGOT 117 U/L (<32); Albumin 2.8 gm/dL (3.2-5.2); Albumin/Globulin Ratio 1.1 (1.0-2.3); Alkaline Phosphatase 219 U/L (39-117); Bilirubin,Direct 3.1 mg/dL (<0.3); Bilirubin,Total 3.8 mg/dL (0.1-1.0); Blood Urea Nitrogen 11 mg/dL (8-23); Carbon Dioxide 19 mmol/L (22-30); Chloride 111 mmol/L (96-108); Globulin 2.6 gm/dL (2.2-3.7); Glomerular Filtration Rate 71; Glucose 88 mg/dL (70-105); Lactate Dehydrogenase 188 U/L (135-225); Phosphorous 2.2 mg/dL (2.5-4.5); Triglycerides 95 mg/dL (<150); Uric Acid 3.8 mg/dL (2.5-8.0)
--- NOTE | 2021-10-22 08:16 | Internal Med Progress Note ---
SUBJECTIVE Subjective Patient information: Note initiated : 10/22/21 at 8:09 am Service Date, if different from initiated Date: [] Patient: Stephanie Chambers a 75 y/o F admitted on 10/21/21 for lethargy. Chief Complaint: [] Interval history: History of present illness: Ms. Chambers is a 75 year old F Presents the ED with her daughter for generalized weakness and malaise. Per the daughter she seems to have some confusion. Daughter worries about the patient not taking her home medications correctly. Patient denies fever chills or abdominal pain. No nausea vomiting or diarrhea. Patient evaluated in ED and found to have painless jaundice with a bilirubin of 5. Elevated transaminases. CT abdomen pelvis showed intrahepatic biliary dilatation. Dr. Omalley was contacted. Patient unable to go for MRCP's so we will go straight to ERCP. Daughter says her urine has been malodorous and strong lately. Urinalysis in the ED concerning for infection. Likely acute cholangitis per ERCP. Stent placed and GI will follow up for possible stent removal in 6 months. Continue to monitor with antibiotics in the hospital. started having abdominal pain after procedure 10/22 States poor sleep and some nausea but otherwise no overnight event or new co mplaints. Patient had ERCP yesterday which showed some noted webbing but not nicely felt to be the cause obstruction. But did find possible patient appears to have acute cholangitis. Bilirubin improving. Transaminases improving. Urine with gram-negative bacillus Review of Systems: denies headache/fever/chills/nausea/vomiting/chest or abdominal pain/cough/dyspnea/diarrhea. Otherwise see above. Constitutional Vitals: Vital Signs Temp Pulse Resp BP Pulse Ox 97.3 F 85 17 138/68 99 10/22/21 06:55 10/22/21 06:55 10/22/21 06:55 10/22/21 06:55 10/22/21 06:55 Period Temp Pulse Resp BP Sys/[place] Pulse Ox Last 24 Hr 97.3 F-98.3 F 57-105 13-36 130-174/68-100 90-100 Intake and Output 10/21/21 10/22/21 10/22/21 21:59 05:59 13:59 Intake Total 1525 1633 Output Total 150 200 Balance 1375 1433 Weight 54.295 kg Intake & Output: Intake & Output 10/21/21 10/22/21 10/22/21 21:59 05:59 13:59 Intake Total 1525 1633 Output Total 150 200 Balance 1375 1433 Weight 54.295 kg Intake: IV 1525 1583 Sodium Chloride 0.9% 1,000 ml @ 525 475 75 mls/hr IV .[id number] [facility] Rx#: [id number] Cleocin 600 mg In Dextrose 5% 108 in Water 50 ml @ 100 mls/hr IV Q8 [facility] Rx#:[id number] Lactated Ringers 1,000 ml @ 125 1000 1000 mls/hr IV .Q8H [facility] Rx#: [id number] Oral 50 Output: Void Amount 150 200 Other: Urine Appearance Clear Clear Urine Color Dark Yellow Dark Yellow # Voids 2 Exam: General: Alert, Awake, No acute Distress Eyes/N/T: EOMI, Head/Neck: neck supple, c CV: RRR, 1/6 SM, Pulm: Clear b/l, no wheezing/rhonchi/rales Abd: soft, nontender, +BS x4 Ext: no clubbing/cyanosis, trace b/l LE edema Neuro: Alert, no focal deficits, moves all extremities, Skin: warm/dry OBJ DATA Labs CBC & Chem 7: 10/20/21 20:40 10/22/21 05:11 Labs: Abnormal Lab Results 10/22/21 10/21/21 10/20/21 05:11 11:32 20:46 Lymph % (Auto) Lymph # (Auto) Potassium 3.0 L Chloride 111 H Carbon Dioxide 19 L Phosphorus 2.2 L Total Bilirubin 3.8 H Direct Bilirubin 3.1 H 3.7 H GGT 278 H AST 117 H ALT 107 H Alkaline Phosphatase 219 H Total Protein 5.4 L Albumin 2.8 L Urine Appearance Cloudy A Urine Protein 30 mg/dl A Urine Ketones Trace A Urine Bilirubin Large A Ur Leukocyte Esterase Small A Urine WBC > 182 H Urine Bacteria Few A Urine Mucus Few A 10/20/21 10/20/21 20:40 20:40 Lymph % (Auto) 14.4 L Lymph # (Auto) 0.96 L Potassium Chloride Carbon Dioxide 21 L Phosphorus Total Bilirubin 5.0 H Direct Bilirubin GGT AST 328 H ALT 151 H Alkaline Phosphatase 151 H Total Protein Albumin Urine Appearance Urine Protein Urine Ketones Urine Bilirubin Ur Leukocyte Esterase Urine WBC Urine Bacteria Urine Mucus Meds: Medications Hydrocodone Bitart/Acetaminophen (Hydrocodone/Apap 5/325mg Tablet) 1 tab PO Q4- 6HP PRN; Protocol PRN Reason: Per Pain Protocol Albuterol/Ipratropium (Ipratropium/Albuterol 3 Ml Ampul.Neb) 3 ml NEB Q4HP PRN PRN Reason: Shortness Of Breath Carvedilol ([facility] 3.125 Mg [facility]t) [facility] Last Admin: 10/21/21 17:23 Dose: Not Given Documented by: Desipramine HCl (Desipramine 25 Mg Tablet) [address] [facility] Last Admin: 10/21/21 20:18 Dose: Not Given Documented by: Docusate Sodium (Docusate Sodium 100 Mg Capsule) 100 mg PO BID [facility] Last Admin: 10/21/21 20:16 Dose: 100 mg Documented by: Enoxaparin Sodium (Enoxaparin 40 Mg/0.4 Ml Syringe) 40 mg SQ DAILY [facility] Famotidine (Famotidine 20 Mg Tablet) 40 mg PO DAILY [facility] Hydromorphone HCl (Hydromorphone 0.5 Mg/0.5 Ml Syringe) 0.25 - 0.5 mg IV Q2HP PRN; Protocol PRN Reason: Per Pain Protocol Sodium Chloride (Sodium Chloride 0.9%) 1,000 mls @ 0 mls/hr IV .Q0M [facility] Potassium Chloride 40 meq/ (Dextrose) 520 mls @ 130 mls/hr IV UD PRN PRN Reason: Potassium < 3 Magnesium Sulfate (Magnesium Sulfate) 2 gm in 50 mls @ 50 mls/hr IV UD PRN PRN Reason: Magnesium </= 1.6 Lactated Ringer's (Lactated Ringers) 1,000 mls @ 125 mls/hr IV .Q8H [facility] Last Admin: 10/22/21 04:15 Dose: 125 mls/hr Documented by: Ceftriaxone Sodium 2 gm/ (Dextrose) 50 mls @ 100 mls/hr IV DAILY [facility] Clindamycin Phosphate 600 mg/ (Dextrose) 54 mls @ 100 mls/hr IV Q8 [facility] Stop: 10/22/21 14:33 Last Infusion: 10/22/21 05:57 Dose: Infused Documented by: Lorazepam (Lorazepam 0.5 Mg Tablet) 0.5 mg PO HSP PRN PRN Reason: anxiety Metronidazole (Metronidazole 500 Mg Tablet) 500 mg PO Q8 [facility] Mirtazapine (Mirtazapine 15 Mg Tablet) 15 mg PO QHS [facility] Last Admin: 10/21/21 20:18 Dose: Not Given Documented by: Ondansetron HCl (Ondansetron 4 Mg/2 Ml Vial) 4 mg IV Q4HP PRN PRN Reason: Nausea And Vomiting Polyethylene Glycol (Polyethylene Glycol 3350 17 Gm Packet) 17 gm PO DAILYP PRN PRN Reason: Constipation Potassium Chloride (Potassium Chloride 20 Meq Tablet) 40 meq PO UD PRN PRN Reason: Potssium is 3-3.5 Potassium Chloride (Potassium Chloride 20 Meq Tablet) 40 meq PO UD PRN PRN Reason: Potassium < 3 Senna (Sennosides 1 Tablet) 2 tab PO DAILYP PRN PRN Reason: Constipation Last Admin: 10/21/21 20:29 Dose: 2 tab Documented by: Sodium Chloride (0.9 % Sodium Chloride 1,000 Ml Bag) 100 ml IV CONT [facility] Sodium Chloride (0.9 % Sodium Chloride 10 Ml Syringe) 10 ml IV Q8 [facility] Last Admin: 10/22/21 05:32 Dose: Not Given Documented by: Trazodone HCl (Trazodone Hcl 100 Mg Tablet) 100 mg PO QHS [facility] Last Admin: 10/21/21 20:16 Dose: 100 mg Documented by: A/P Narrative A/P Narrative: A: *Acute Cholangitis: s/p ERCP with stent (10/21) *Sepsis on admit with confusion/lethargy: improving *UTI (GNB): *Transaminitis: 2/2 above, improving *Generalized weakness: *CKD III: *Nonischemic-CMP, EF normalized with BiV pacer: *HTN: *Depression/anxiety: *GERD: *UC: on budesonide P: -Rocephin/Flagyl -pending UC -Dr. Omalley following, f/u outpt, Amylase/lipase pending per GI -cont gino BB, Aldactone,psych -pt/ot -CM for placement -records from [facility], why on topiramate -ppx: lovenox / home H2 Time Spent With Patient Time: Total time spent is greater than 50% in coordination of care (as documented) at patient's floor/unit and/or counseling patient: QUALITY VTE Deep Vein Thrombosis/Pulmonary Embolism Present on Admission: No
[2021-10-22] MEDS: PHOSPHORUS 250 MG TABLET PO SCH ×3 (08:55→20:33)
[2021-10-22] MEDS: CARVEDILOL 3.125 MG TABLET PO SCH ×2 (08:55→16:47)
[2021-10-22] MEDS: ENOXAPARIN 40 MG/0.4 ML SYRINGE SQ SCH (08:55)
[2021-10-22] MEDS: DOCUSATE SODIUM 100 MG CAPSULE PO SCH ×2 (08:55→19:39)
[2021-10-22] MEDS: FAMOTIDINE 20 MG TABLET PO SCH (08:55)
[2021-10-22] MEDS ORDERED: cefTRIAXone 2 GM VIAL ONE (08:56)
[2021-10-22] MEDS: cefTRIAXone 2 GM in DEXTROSE 5% IN WATER 50 ML IV SCH (08:56)
[2021-10-22] MEDS ORDERED: FAMOTIDINE 20 MG TABLET PO SCH (09:00)
[2021-10-22 10:48] LABS: Amylase 135 U/L (28-100)
--- NOTE | 2021-10-22 11:10 | ERCP Procedure Note ---
ERCP Procedure Note Procedure Information Patient information: Note initiated : 10/22/21 at 11:06 am Service Date: 10/21/21 Patient: Stephanie Chambers 75 y/o F admitted on 10/21/21 for lethargy. Pre-op diagnosis general: Jaundice. Abnormal CT. 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 Ascending cholangitis. Procedure: ERCP with Papilotomy Procedure narrative: The procedures, alternatives and risks were discussed with the patient and the patient's questions were answered. Patient advised of risks of bleeding, pancreatitis, infection and perforation. Patient agrees to proceed. With endoscopist-administered intravenous sedation, the Olympus side viewing operating duodenoscope was introduced into the esophagus and advanced to the second part of the duodenum without difficulty. The ampulla of Vater was visualized. Papillotomy was performed. The bile duct was selectively cannulated and cholangiogram obtained. The bile duct was markedly dilated. Pancreatic duct appeared normal to genu. A congenital web was seen in the distal common bile duct, 1 cm into the bile duct. This was dilated with a balloon to 15mm and the bile duct was swept multiple timse. Bile was purulent. Biliary stent placed 10 x5 stent. At the end of the procedure, the bile duct appeared to be cleared of all stones. The scope was withdrawn. Assessment: Congenital bile duct web. Papillary stenosis. Ascending cholangitis. ERCP should be repeated in 6 weeks for stent removal.
[2021-10-22] MEDS: POTASSIUM CHLORIDE 20 MEQ TABLET PO PRN (20:33)
[2021-10-22] MEDS: MELATONIN 3 MG TABLET PO SCH (20:33)
[2021-10-22] MEDS: traZODone HCL 100 MG TABLET PO SCH (20:33)
[2021-10-22] MEDS: MIRTAZAPINE 15 MG TABLET PO SCH (20:33)
[2021-10-22] MEDS: DESIPRAMINE 25 MG TABLET PO SCH (21:11)
[2021-10-22] MEDS: metroNIDAZOLE 500 MG TABLET PO SCH (21:17)
--- NOTE | 2021-10-23 02:05 | XRay Report ---
CLINICAL INFORMATION: Jaundice and marked intra and extrahepatic biliary duct and pancreatic duct dilatation on CT COMPARISON: None. FINDINGS: Dr. Omalley successfully cannulated and injected both the distal common bile and pancreatic ducts. The intrahepatic common hepatic and common bile duct are markedly dilated due to a congenital web in the intrapancreatic common bile duct and papillary stenosis. This was successfully treated with balloon dilatation and stenting. Pancreatic duct is also mildly dilated. IMPRESSION: Marked dilatation of the intrahepatic and common bile duct due to congenital web in the intrapancreatic portion of the common bile duct and papillary stenosis. The web was successfully obliterated with balloon catheter and papillotomy was performed resulting good drainage. A stent was successfully placed the common bile duct Interpreted and Authenticated by: Julian Luevano 10/23/21
[2021-10-23] MEDS: 0.9 % SODIUM CHLORIDE 10 ML SYRINGE IV SCH ×3 (04:20→21:53)
[2021-10-23] MEDS: metroNIDAZOLE 500 MG TABLET PO SCH ×3 (05:13→21:53)
[2021-10-23 07:03] LABS: ALT/SGPT 81 U/L (<40); AST/SGOT 59 U/L (<32); Albumin 3.1 gm/dL (3.2-5.2); Albumin/Globulin Ratio 1.2 (1.0-2.3); Alkaline Phosphatase 311 U/L (39-117); Bilirubin,Total 1.5 mg/dL (0.1-1.0); Blood Urea Nitrogen 10 mg/dL (8-23); Calcium 8.8 mg/dL (8.6-10.4); Carbon Dioxide 22 mmol/L (22-30); Chloride 113 mmol/L (96-108); Globulin 2.5 gm/dL (2.2-3.7); Glomerular Filtration Rate 71; Glucose 92 mg/dL (70-105); Lactate Dehydrogenase 194 U/L (135-225); Phosphorous 2.7 mg/dL (2.5-4.5); Triglycerides 120 mg/dL (<150); Uric Acid 3.5 mg/dL (2.5-8.0)
[2021-10-23] MEDS ORDERED: POTASSIUM CHLORIDE 20 MEQ TABLET PO ONE ×2 (07:51→13:47)
--- NOTE | 2021-10-23 07:51 | Internal Med Progress Note ---
SUBJECTIVE Subjective Patient information: Note initiated : 10/23/21 at 7:47 am Service Date, if different from initiated Date: [] Patient: Stephanie Chambers a 75 y/o F admitted on 10/21/21 for lethargy. Chief Complaint: [] Interval history: History of present illness: Ms. Chambers is a 75 year old F Presents the ED with her daughter for generalized weakness and malaise. Per the daughter she seems to have some confusion. Daughter worries about the patient not taking her home medications correctly. Patient denies fever chills or abdominal pain. No nausea vomiting or diarrhea. Patient evaluated in ED and found to have painless jaundice with a bilirubin of 5. Elevated transaminases. CT abdomen pelvis showed intrahepatic biliary dilatation. Dr. Omalley was contacted. Patient unable to go for MRCP's so we will go straight to ERCP. Daughter says her urine has been malodorous and strong lately. Urinalysis in the ED concerning for infection. Likely acute cholangitis per ERCP. Stent placed and GI will follow up for possible stent removal in 6 months. Continue to monitor with antibiotics in the hospital. started having abdominal pain after procedure 2/ States poor sleep and some nausea but otherwise no overnight event or new co mplaints. Patient had ERCP yesterday which showed some noted webbing but not nicely felt to be the cause obstruction. But did find possible patient appears to have acute cholangitis. Bilirubin improving. Transaminases improving. Urine with gram-negative bacillus 2/ No overnight event. Discharged on Avelox per GI. Patient concerned about psychiatric medications, we have been trying to obtain records from the nurse practitioners prescribing those so we can definitively know which medication she is getting at the patient is unsure of what she is taking. Review of Systems: denies headache/fever/chills/nausea/vomiting/chest or abdominal pain/cough/dyspnea/diarrhea. Otherwise see above. Constitutional Vitals: Vital Signs Temp Pulse Resp BP Pulse Ox 97.7 F 79 20 147/69 99 10/23/21 03:29 10/23/21 03:29 10/23/21 03:29 10/23/21 03:29 10/23/21 03:29 Period Temp Pulse Resp BP Sys/[place] Pulse Ox Last 24 Hr 97.7 F-98.5 F 73-83 20-24 143-164/64-79 93-100 Intake and Output 10/22/21 10/23/21 10/23/21 21:59 05:59 13:59 Intake Total 554 50 Output Total 551 Balance 554 -501 Weight 54.913 kg Intake & Output: Intake & Output 10/22/21 10/23/21 10/23/21 21:59 05:59 13:59 Intake Total 554 50 Output Total 551 Balance 554 -501 Weight 54.913 kg Intake: IV 54 Cleocin 600 mg In Dextrose 5% 54 in Water 50 ml @ 100 mls/hr IV Q8 [facility] Rx#:[id number] Oral 500 50 Output: Void Amount 200 # of times incontinent of urine 1 Urine/Stool Mix 350 Other: Urine Appearance Clear Urine Color Bright Yellow Urine Odor Strong Stool Size Moderate Stool Color Brown Stool Consistency Loose Liquid Watery # Voids 1 # Bowel Movements 1 # of times incontinent of 1 Bowels Exam: General: Alert, Awake, No acute Distress Eyes/N/T: EOMI, Head/Neck: neck supple, CV: RRR, 1/6 SM, Pulm: Clear b/l, no wheezing/rhonchi/rales Abd: soft, nontender, +BS x4 Ext: no clubbing/cyanosis, trace b/l LE edema Neuro: Alert, no focal deficits, moves all extremities, Skin: warm/dry OBJ DATA Labs CBC & Chem 7: 10/22/21 05:12 10/23/21 05:16 Labs: Abnormal Lab Results 10/23/21 10/22/21 10/22/21 05:16 05:11 05:11 Lymph % (Auto) Lymph # (Auto) Sodium 146 H Potassium 3.0 L 3.0 L Chloride 113 H 111 H Carbon Dioxide 19 L Phosphorus 2.2 L Total Bilirubin 1.5 H 3.8 H Direct Bilirubin 1.0 H 3.1 H GGT 425 H 278 H AST 59 H 117 H ALT 81 H 107 H Alkaline Phosphatase 311 H 219 H Total Protein 5.6 L 5.4 L Albumin 3.1 L 2.8 L Amylase 135 H Urine Appearance Urine Protein Urine Ketones Urine Bilirubin Ur Leukocyte Esterase Urine WBC Urine Bacteria Urine Mucus 10/21/21 10/20/21 10/20/21 11:32 20:46 20:40 Lymph % (Auto) Lymph # (Auto) Sodium Potassium Chloride Carbon Dioxide 21 L Phosphorus Total Bilirubin 5.0 H Direct Bilirubin 3.7 H GGT AST 328 H ALT 151 H Alkaline Phosphatase 151 H Total Protein Albumin Amylase Urine Appearance Cloudy A Urine Protein 30 mg/dl A Urine Ketones Trace A Urine Bilirubin Large A Ur Leukocyte Esterase Small A Urine WBC > 182 H Urine Bacteria Few A Urine Mucus Few A 10/20/21 20:40 Lymph % (Auto) 14.4 L Lymph # (Auto) 0.96 L Sodium Potassium Chloride Carbon Dioxide Phosphorus Total Bilirubin Direct Bilirubin GGT AST ALT Alkaline Phosphatase Total Protein Albumin Amylase Urine Appearance Urine Protein Urine Ketones Urine Bilirubin Ur Leukocyte Esterase Urine WBC Urine Bacteria Urine Mucus Meds: Medications Hydrocodone Bitart/Acetaminophen (Hydrocodone/Apap 5/325mg Tablet) 1 tab PO Q4- 6HP PRN; Protocol PRN Reason: Per Pain Protocol Albuterol/Ipratropium (Ipratropium/Albuterol 3 Ml Ampul.Neb) 3 ml NEB Q4HP PRN PRN Reason: Shortness Of Breath Carvedilol (Carvedilol 3.125 Mg Tablet) [facility] [facility] Last Admin: 10/22/21 16:47 Dose: 3.125 mg Documented by: Desipramine HCl (Desipramine 25 Mg Tablet) 50 mg PO [facility] Last Admin: 10/22/21 21:11 Dose: Not Given Documented by: Docusate Sodium (Docusate Sodium 100 Mg Capsule) 100 mg PO BID [facility] Last Admin: 10/22/21 19:39 Dose: Not Given Documented by: Enoxaparin Sodium (Enoxaparin 40 Mg/0.4 Ml Syringe) 40 mg SQ DAILY [facility] Last Admin: 10/22/21 08:55 Dose: 40 mg Documented by: Famotidine (Famotidine 20 Mg Tablet) 40 mg PO DAILY [facility] Last Admin: 10/22/21 08:55 Dose: 40 mg Documented by: Hydromorphone HCl (Hydromorphone 0.5 Mg/0.5 Ml Syringe) 0.25 - 0.5 mg IV Q2HP PRN; Protocol PRN Reason: Per Pain Protocol Potassium Chloride 40 meq/ (Dextrose) 520 mls @ 130 mls/hr IV UD PRN PRN Reason: Potassium < 3 Magnesium Sulfate (Magnesium Sulfate) 2 gm in 50 mls @ 50 mls/hr IV UD PRN PRN Reason: Magnesium </= 1.6 Ceftriaxone Sodium 2 gm/ (Dextrose) 50 mls @ 100 mls/hr IV DAILY [facility] Last Infusion: 10/22/21 09:51 Dose: Infused Documented by: Lorazepam (Lorazepam 0.5 Mg Tablet) 0.5 mg PO HSP PRN PRN Reason: anxiety Melatonin (Melatonin 3 Mg Tablet) 3 mg PO QHS [facility] Last Admin: 10/22/21 20:33 Dose: 3 mg Documented by: Metronidazole (Metronidazole 500 Mg Tablet) 500 mg PO Q8 [facility] Last Admin: 10/23/21 05:13 Dose: 500 mg Documented by: Mirtazapine (Mirtazapine 15 Mg Tablet) 15 mg PO QHS [facility] Last Admin: 10/22/21 20:33 Dose: 15 mg Documented by: Ondansetron HCl (Ondansetron 4 Mg/2 Ml Vial) 4 mg IV Q4HP PRN PRN Reason: Nausea And Vomiting Polyethylene Glycol (Polyethylene Glycol 3350 17 Gm Packet) 17 gm PO DAILYP PRN PRN Reason: Constipation Potassium Chloride (Potassium Chloride 20 Meq Tablet) 40 meq PO UD PRN PRN Reason: Potssium is 3-3.5 Last Admin: 10/22/21 20:33 Dose: 40 meq Documented by: Potassium Chloride (Potassium Chloride 20 Meq Tablet) 40 meq PO UD PRN PRN Reason: Potassium < 3 Senna (Sennosides 1 Tablet) 2 tab PO DAILYP PRN PRN Reason: Constipation Last Admin: 10/21/21 20:29 Dose: 2 tab Documented by: Sodium Chloride (0.9 % Sodium Chloride 1,000 Ml Bag) 100 ml IV CONT [facility] Sodium Chloride (0.9 % Sodium Chloride 10 Ml Syringe) 10 ml IV Q8 [facility] Last Admin: 10/23/21 04:20 Dose: 10 ml Documented by: Trazodone HCl (Trazodone Hcl 100 Mg Tablet) 100 mg PO QHS [facility] Last Admin: 10/22/21 20:33 Dose: 100 mg Documented by: A/P Narrative A/P Narrative: A: *Acute Cholangitis: s/p ERCP with stent (10/21) *Sepsis on admit with confusion/lethargy: resolved *UTI (Klebsiella p.): *Transaminitis: 2/2 above, improving *Generalized weakness: *CKD III: *Nonischemic-CMP, EF normalized with BiV pacer: *HTN: *Depression/anxiety: *GERD: *UC: on budesonide P: -Rocephin/Flagyl -Dr. Omalley following, f/u outpt, d/c on Avelox 400mg daily to complete 10 days course abx per GI -cont gino BB, Aldactone,psych -pt/ot -CM for placement -records from behavioral health, possibly on topiramate for migraines -ppx: lovenox / home H2 Time Spent With Patient Time: Total time spent is greater than 50% in coordination of care (as documented) at patient's floor/unit and/or counseling patient: QUALITY VTE Deep Vein Thrombosis/Pulmonary Embolism Present on Admission: No
[2021-10-23] MEDS ORDERED: DEXTROSE 5% IN WATER 500 ML IV SCH ×2 (08:00→14:00)
[2021-10-23] MEDS: FAMOTIDINE 20 MG TABLET PO SCH (08:20)
[2021-10-23] MEDS: cefTRIAXone 2 GM in DEXTROSE 5% IN WATER 50 ML IV SCH (08:20)
[2021-10-23] MEDS: CARVEDILOL 3.125 MG TABLET PO SCH ×2 (08:20→18:13)
[2021-10-23] MEDS: ENOXAPARIN 40 MG/0.4 ML SYRINGE SQ SCH (08:21)
[2021-10-23] MEDS: DOCUSATE SODIUM 100 MG CAPSULE PO SCH ×2 (08:24→20:35)
--- NOTE | 2021-10-23 10:25 | Discharge Summary ---
Discharge Provider Provider Patient information: Note initiated : 10/23/21 at 10:23 am Service Date, if different from initiated Date: [] Patient: Stephanie Chambers 75 y/o F admitted on 10/21/21 for lethargy. Chief Complaint: [] Date of admission: 10/21/21 11:12 Discharge date: 10/25/21 Primary care physician: Ulisses Colon MD Consults: 10/21/21 Consult to Physician [CONS] Stat Comment: Consulting Provider: Zack Banegas Reason For Exam: Physician to Consult Consult to Physician [CONS] Stat Comment: Consulting Provider: Juan Plummer Reason For Exam: Physician to Consult Discharge Meds Discharge Medications Home Medications carvedilol 3.125 mg tablet 3.125 mg PO BID 03/31/18 [History Confirmed 10/21/21 Last Taken Unknown] mirtazapine 15 mg tablet (Remeron) 15 mg PO QHS tab 04/23/21 [History Confirmed 10/21/21 Last Taken Unknown] multivitamin 1 tab PO QDAY 04/23/21 [History Confirmed 10/21/21 Last Taken Unknown] desipramine 50 mg tablet 50 mg PO QHS tab 08/02/21 [History Confirmed 10/21/21 Last Taken Unknown] topiramate 100 mg tablet 100 mg PO QDAY tab 08/02/21 [History Confirmed 10/21/21 Last Taken Unknown] famotidine 40 mg tablet 40 mg PO QDAY #90 tab 09/09/21 [Rx Confirmed 10/21/21 Last Taken Unknown] trazodone 100 mg tablet 100 mg PO QHS tab 10/15/21 [History Confirmed 10/21/21 Last Taken Unknown] diphenoxylate-atropine 2.5 mg-0.025 mg tablet (Lomotil) 1 - 2 tab PO QIDP PRN 10/21/21 [History Confirmed 10/21/21 Last Taken 10/20/21] lorazepam 0.5 mg tablet 0.5 mg PO BID #10 tab 10/25/21 [Rx Last Taken Unknown] moxifloxacin 400 mg tablet 400 mg PO Q24H #6 tab 10/25/21 [Rx Last Taken Unknown] COURSE Hospital Course Hospital course: History of present illness: Ms. Chambers is a 75 year old F Presents the ED with her daughter for generalized weakness and malaise. Per the daughter she seems to have some confusion. Daughter worries about the patient not taking her home medications correctly. Patient denies fever chills or abdominal pain. No nausea vomiting or diarrhea. Patient evaluated in ED and found to have painless jaundice with a bilirubin of 5. Elevated transaminases. CT abdomen pelvis showed intrahepatic biliary dilatation. Dr. Omalley was contacted. Patient unable to go for MRCP's so we will go straight to ERCP. Daughter says her urine has been malodorous and strong lately. Urinalysis in the ED concerning for infection. Likely acute cholangitis per ERCP. Stent placed and GI will follow up for possible stent removal in 6 months. Continue to monitor with antibiotics in the hospital. started having abdominal pain after procedure 2/ States poor sleep and some nausea but otherwise no overnight event or new complaints. Patient had ERCP yesterday which showed some noted webbing but not nicely felt to be the cause obstruction. But did find possible patient appears to have acute cholangitis. Bilirubin improving. Transaminases improving. Urine with gram-negative bacillus 2/2 No overnight event. Discharged on Avelox per GI. Patient concerned about psychiatric medications, we have been trying to obtain records from the nurse practitioners prescribing those so we can definitively know which medication she is getting at the patient is unsure of what she is taking. Per [employer] note, pt on mirtazapine,trazadone for insomnia, topiramate, orestes zepam; desipramine prescribed by GI provider. desipramine may have been prescribed for IBS? 2/3 States poor sleep but otherwise no overnight events or new complaints. Awaiting placement 2/ No changes overnight. No new complaints. Awaiting placement. A: *Acute Cholangitis: s/p ERCP with stent (10/21) *Sepsis on admit with confusion/lethargy: resolved *UTI (Klebsiella p.): *Transaminitis: 2/2 above, improving *Generalized weakness: *CKD III: *Nonischemic-CMP, EF normalized with BiV pacer: *HTN: *Depression/anxiety: *GERD: *UC: on budesonide P: -Dr. Omalley GI, f/u outpt, d/c on Avelox 400mg daily to complete 10 days course abx per GI -f/u with multimedia production assistant for medication review with pt/family Discharge diagnosis: Acute cholangitis UTI sepsis transaminitis Secondary discharge diagnosis: Generalized weakness chronic kidney disease nonischemic cardiomyopathy hypertension depression anxiety GERD ulcerative colitis Time Spent with Patient Time attestation: Total time spent providing and/or coordinating discharge services: Time spent: Greater than 30 minutes EXAM Constitutional Vitals: Temp Pulse Resp BP Pulse Ox 97.6 F 82 20 137/67 98 10/23/21 07:54 10/23/21 07:54 10/23/21 07:54 10/23/21 07:54 10/23/21 07:54 Discharge Data Data Completed and Pending Labs on day of discharge: Labs from last 24 hours 10/23/21 10/22/21 10/22/21 05:16 05:12 05:11 WBC TNP RBC TNP Hgb TNP Hct TNP MCV TNP MCH TNP MCHC TNP RDW TNP Plt Count TNP MPV TNP Neut % (Auto) TNP Lymph % (Auto) TNP [place] % (Auto) TNP Eos % (Auto) TNP Baso % (Auto) TNP Lymph # (Auto) TNP [place] # (Auto) TNP Eos # (Auto) TNP Baso # (Auto) TNP Absolute Neutrophils TNP Differential Comment TNP Sodium 146 H Potassium 3.0 L Chloride 113 H Carbon Dioxide 22 Anion Gap 11.0 BUN 10 Creatinine 0.8 GFR Calculation 71 Glucose 92 Uric Acid 3.5 Calcium 8.8 Phosphorus 2.7 Magnesium 1.8 Total Bilirubin 1.5 H Direct Bilirubin 1.0 H GGT 425 H AST 59 H ALT 81 H Alkaline Phosphatase 311 H Lactate Dehydrogenase 194 Total Protein 5.6 L Albumin 3.1 L Globulin 2.5 Albumin/Globulin Ratio 1.2 Triglycerides 120 Amylase 135 H Lipase 41 Discharge Plan Patient/Caregiver Discharge Instructions Activity: increase activity as tolerated Diet: Regular Diet Activity Restrictions/Additional Instructions: Psychiatric medications to be reviewed by prescriber, nurse practitioner, follow-up outpt. Prescriptions: New moxifloxacin 400 mg tablet 400 mg PO Q24H Qty: 6 0RF Rx Instructions: start Continued famotidine 40 mg tablet 40 mg PO QDAY Qty: 90 3RF Rx Instructions: New dose multivitamin Tablet 1 tab PO QDAY 0RF trazodone 100 mg tablet 100 mg PO QHS 0RF carvedilol 3.125 mg tablet 3.125 mg PO BID 0RF mirtazapine [Remeron] 15 mg tablet 15 mg PO QHS 0RF topiramate 100 mg tablet 100 mg PO QDAY 0RF Label Comments: Managed by Kathleen Carrillo desipramine 50 mg tablet 50 mg PO QHS 0RF diphenoxylate-atropine [Lomotil] 2.5-0.025 mg tablet 1 - 2 tab PO QIDP PRN (Reason: Diarrhea) 0RF lorazepam 0.5 mg tablet 0.5 mg PO BID Qty: 10 0RF Follow Up Plan Follow up with: Yessica Garcia ARNP [Nurse Practitioner] - Ulisses Colon MD [Primary Care Provider] - Kathleen Dietz ARNP [Referring] - Patient Disposition: Xfer SNF Prognosis: Fair Rehab Potential: Fair I certify that the patient requires SNF services: Yes Overall status at discharge: patient is progressing back to baseline Discharge Orders: Discharge Order (Routine); Ordered 10/25/21 Ordered By: Zack Banegas [facility] VTE Deep Vein Thrombosis/Pulmonary Embolism Present on Admission: No
[2021-10-23 13:00] LABS: POC Blood Urea Nitrogen 9 mg/dL (6-20); POC CO2 19 mmol/L (22-30); POC Calcium, Ionized 1.24 mmEq/L (1.16-1.32); POC Chloride 112 mEq/L (96-108); POC Creatinine 0.7 mg/dL (0.6-1.2); POC Glucose, Random 126 mg/dL (70-105); POC Hematocrit 35 % (36-48); POC Sodium 146 mEq/L (133-145)
[2021-10-23] MEDS ORDERED: HYDROCHLOROTHIAZIDE 25 MG TABLET PO ONE (13:48)
[2021-10-23] MEDS: DIPHENOXYLATE HCL/ATROPINE 1 TABLET PO PRN (18:15)
[2021-10-23] MEDS: DESIPRAMINE 25 MG TABLET PO SCH (20:35)
[2021-10-23] MEDS: traZODone HCL 100 MG TABLET PO SCH (20:39)
[2021-10-23] MEDS: MIRTAZAPINE 15 MG TABLET PO SCH (20:39)
[2021-10-23] MEDS: MELATONIN 3 MG TABLET PO SCH (20:39)
[2021-10-24] MEDS: DIPHENOXYLATE HCL/ATROPINE 1 TABLET PO PRN ×2 (05:11→21:31)
[2021-10-24] MEDS: 0.9 % SODIUM CHLORIDE 10 ML SYRINGE IV SCH ×3 (05:11→21:31)
[2021-10-24] MEDS: metroNIDAZOLE 500 MG TABLET PO SCH ×3 (05:11→21:29)
--- NOTE | 2021-10-24 07:56 | Internal Med Progress Note ---
SUBJECTIVE Subjective Patient information: Note initiated : 10/24/21 at 7:53 am Service Date, if different from initiated Date: [] Patient: Stephanie Chambers a 75 y/o F admitted on 10/21/21 for lethargy. Chief Complaint: [] Interval history: History of present illness: Ms. Chambers is a 75 year old F Presents the ED with her daughter for generalized weakness and malaise. Per the daughter she seems to have some confusion. Daughter worries about the patient not taking her home medications correctly. Patient denies fever chills or abdominal pain. No nausea vomiting or diarrhea. Patient evaluated in ED and found to have painless jaundice with a bilirubin of 5. Elevated transaminases. CT abdomen pelvis showed intrahepatic biliary dilatation. Dr. Omalley was contacted. Patient unable to go for MRCP's so we will go straight to ERCP. Daughter says her urine has been malodorous and strong lately. Urinalysis in the ED concerning for infection. Likely acute cholangitis per ERCP. Stent placed and GI will follow up for possible stent removal in 6 months. Continue to monitor with antibiotics in the hospital. started having abdominal pain after procedure 2/ States poor sleep and some nausea but otherwise no overnight event or new co mplaints. Patient had ERCP yesterday which showed some noted webbing but not nicely felt to be the cause obstruction. But did find possible patient appears to have acute cholangitis. Bilirubin improving. Transaminases improving. Urine with gram-negative bacillus 2/ No overnight event. Discharged on Avelox per GI. Patient concerned about psychiatric medications, we have been trying to obtain records from the nurse practitioners prescribing those so we can definitively know which medication she is getting at the patient is unsure of what she is taking. Per RN GASTROENTEROLOGY note, pt on mirtazapine,trazadone for insomnia, topiramate, lorazepam; desipramine prescribed by GI provider. desipramine may have been prescribed for IBS? 2/3 States poor sleep but otherwise no overnight events or new complaints. Awaiting placement Review of Systems: denies headache/fever/chills/nausea/vomiting/chest or abdominal pain/cough/dyspnea/diarrhea. Otherwise see above. Constitutional Vitals: Vital Signs Temp Pulse Resp BP Pulse Ox 97.4 F 71 16 136/65 97 10/24/21 03:19 10/24/21 03:19 10/24/21 03:19 10/24/21 03:19 10/24/21 03:19 Period Temp Pulse Resp BP Sys/[place] Pulse Ox Last 24 Hr 97.4 F-99.4 F 68-82 16-24 136-174/65-81 97-100 Intake and Output 10/23/21 10/24/21 10/24/21 21:59 05:59 13:59 Intake Total 1800 50 Output Total 700 501 300 Balance 1100 -451 -300 Weight 55.656 kg Intake & Output: Intake & Output 10/23/21 10/24/21 10/24/21 21:59 05:59 13:59 Intake Total 1800 50 Output Total 700 501 300 Balance 1100 -451 -300 Weight 55.656 kg Intake: IV 1000 Dextrose 5% in Water 500 ml @ 1000 100 mls/hr IV .Q5H DARON Rx#: [id number] Oral 800 50 Output: Void Amount 700 250 300 # of times incontinent of urine 1 Urine/Stool Mix 250 Other: Meal Dinner Percent of Meal Consumed 50% Feeding Ability Assist with Tray Set Up Urine Appearance Clear Clear Urine Color Bright Yellow Bright Yellow Urine Odor Strong Normal Stool Color Brown Stool Consistency Liquid Watery Loose Exam: General: Alert, Awake, No acute Distress Eyes/N/T: EOMI, Head/Neck: neck supple, CV: RRR, 1/6 SM, Pulm: Clear b/l, no wheezing/rhonchi/rales Abd: soft, nontender, +BS x4 Ext: no clubbing/cyanosis, trace b/l LE edema Neuro: Alert, no focal deficits, moves all extremities, Skin: warm/dry OBJ DATA Labs CBC & Chem 7: 10/22/21 05:12 10/24/21 05:50 Labs: Abnormal Lab Results 10/23/21 10/23/21 10/22/21 12:52 05:16 05:11 POC Hct 35 L POC Sodium 146 H Sodium 146 H POC Potassium 3.0 L Potassium 3.0 L POC Chloride 112 H Chloride 113 H Carbon Dioxide POC Total CO2 19 L POC Glucose 126 H Phosphorus Total Bilirubin 1.5 H Direct Bilirubin 1.0 H GGT 425 H AST 59 H ALT 81 H Alkaline Phosphatase 311 H Total Protein 5.6 L Albumin 3.1 L Amylase 135 H 10/22/21 10/21/21 05:11 11:32 POC Hct POC Sodium Sodium POC Potassium Potassium 3.0 L POC Chloride Chloride 111 H Carbon Dioxide 19 L POC Total CO2 POC Glucose Phosphorus 2.2 L Total Bilirubin 3.8 H Direct Bilirubin 3.1 H 3.7 H GGT 278 H AST 117 H ALT 107 H Alkaline Phosphatase 219 H Total Protein 5.4 L Albumin 2.8 L Amylase Meds: Medications Hydrocodone Bitart/Acetaminophen (Hydrocodone/Apap 5/325mg Tablet) 1 tab PO Q4- 6HP PRN; Protocol PRN Reason: Per Pain Protocol Albuterol/Ipratropium (Ipratropium/Albuterol 3 Ml Ampul.Neb) 3 ml NEB Q4HP PRN PRN Reason: Shortness Of Breath Carvedilol ([facility]ilol 3.125 Mg Tablet) [facility] Last Admin: 10/23/21 18:13 Dose: 3.125 mg Documented by: Desipramine HCl (Desipramine 25 Mg Tablet) 50 mg PO [facility] Last Admin: 10/23/21 20:35 Dose: Not Given Documented by: Diphenoxylate HCl/Atropine (Diphenoxylate Hcl/Atropine 1 Tablet) 1 - 2 tab PO QIDP PRN PRN Reason: Diarrhea Last Admin: 10/24/21 05:11 Dose: 1 tab Documented by: Docusate Sodium (Docusate Sodium 100 Mg Capsule) 100 mg PO BID [facility] Last Admin: 10/23/21 20:35 Dose: Not Given Documented by: Enoxaparin Sodium (Enoxaparin 40 Mg/0.4 Ml Syringe) 40 mg SQ DAILY [facility] Last Admin: 10/23/21 08:21 Dose: 40 mg Documented by: Famotidine (Famotidine 20 Mg Tablet) 40 mg PO DAILY [facility] Last Admin: 10/23/21 08:20 Dose: 40 mg Documented by: Hydromorphone HCl (Hydromorphone 0.5 Mg/0.5 Ml Syringe) 0.25 - 0.5 mg IV Q2HP PRN; Protocol PRN Reason: Per Pain Protocol Potassium Chloride 40 meq/ (Dextrose) 520 mls @ 130 mls/hr IV UD PRN PRN Reason: Potassium < 3 Magnesium Sulfate (Magnesium Sulfate) 2 gm in 50 mls @ 50 mls/hr IV UD PRN PRN Reason: Magnesium </= 1.6 Ceftriaxone Sodium 2 gm/ (Dextrose) 50 mls @ 100 mls/hr IV DAILY [facility] Last Infusion: 10/23/21 08:50 Dose: Infused Documented by: Lorazepam (Lorazepam 0.5 Mg Tablet) 0.5 mg PO HSP PRN PRN Reason: anxiety Melatonin (Melatonin 3 Mg Tablet) 3 mg PO QHS [facility] Last Admin: 10/23/21 20:39 Dose: 3 mg Documented by: Metronidazole (Metronidazole 500 Mg Tablet) 500 mg PO Q8 [facility] Last Admin: 10/24/21 05:11 Dose: 500 mg Documented by: Mirtazapine (Mirtazapine 15 Mg Tablet) 15 mg PO QHS [facility] Last Admin: 10/23/21 20:39 Dose: 15 mg Documented by: Ondansetron HCl (Ondansetron 4 Mg/2 Ml Vial) 4 mg IV Q4HP PRN PRN Reason: Nausea And Vomiting Polyethylene Glycol (Polyethylene Glycol 3350 17 Gm Packet) 17 gm PO DAILYP PRN PRN Reason: Constipation Potassium Chloride (Potassium Chloride 20 Meq Tablet) 40 meq PO UD PRN PRN Reason: Potssium is 3-3.5 Last Admin: 10/22/21 20:33 Dose: 40 meq Documented by: Potassium Chloride (Potassium Chloride 20 Meq Tablet) 40 meq PO UD PRN PRN Reason: Potassium < 3 Senna (Sennosides 1 Tablet) 2 tab PO DAILYP PRN PRN Reason: Constipation Last Admin: 10/21/21 20:29 Dose: 2 tab Documented by: Sodium Chloride (0.9 % Sodium Chloride 10 Ml Syringe) 10 ml IV Q8 [facility] Last Admin: 10/24/21 05:11 Dose: 10 ml Documented by: Trazodone HCl (Trazodone Hcl 100 Mg Tablet) 100 mg PO QHS [facility] Last Admin: 10/23/21 20:39 Dose: 100 mg Documented by: A/P Narrative A/P Narrative: A: *Acute Cholangitis: s/p ERCP with stent (10/21) *Sepsis on admit with confusion/lethargy: resolved *UTI (Klebsiella p.): *Transaminitis: 2/2 above, improving *Generalized weakness: *CKD III: *Nonischemic-CMP, EF normalized with BiV pacer: *HTN: *Depression/anxiety: *GERD: *UC: on budesonide P: -Rocephin/Flagyl -Dr. Omalley following, f/u outpt, d/c on Avelox 400mg daily to complete 10 days course abx per GI -cont gino BB, Aldactone,psych -pt/ot -CM for placement -Per RN GASTROENTEROLOGY note, pt on mirtazapine,trazadone for insomnia, topiramate, lorazepam; desipramine prescribed by GI provider. desipramine may have been prescribed for IBS? -ppx: lovenox / home H2 Time Spent With Patient Time: Total time spent is greater than 50% in coordination of care (as documented) at patient's floor/unit and/or counseling patient: QUALITY VTE Deep Vein Thrombosis/Pulmonary Embolism Present on Admission: No
[2021-10-24 08:11] LABS: Blood Urea Nitrogen 8 mg/dL (8-23); Calcium 9.2 mg/dL (8.6-10.4); Carbon Dioxide 21 mmol/L (22-30); Chloride 107 mmol/L (96-108); Glomerular Filtration Rate 84; Glucose 92 mg/dL (70-105)
[2021-10-24] MEDS: DOCUSATE SODIUM 100 MG CAPSULE PO SCH ×2 (08:15→21:32)
[2021-10-24] MEDS: CARVEDILOL 3.125 MG TABLET PO SCH ×2 (08:33→17:21)
[2021-10-24] MEDS: FAMOTIDINE 20 MG TABLET PO SCH (08:33)
[2021-10-24] MEDS: POTASSIUM CHLORIDE 20 MEQ TABLET PO PRN (08:34)
[2021-10-24] MEDS: ENOXAPARIN 40 MG/0.4 ML SYRINGE SQ SCH (08:39)
[2021-10-24] MEDS: cefTRIAXone 2 GM in DEXTROSE 5% IN WATER 50 ML IV SCH (08:48)
[2021-10-24] MEDS ORDERED: POTASSIUM CHLORIDE 20 MEQ TABLET PO ONE (09:08)
[2021-10-24] MEDS: MELATONIN 3 MG TABLET PO SCH (21:29)
[2021-10-24] MEDS: traZODone HCL 100 MG TABLET PO SCH (21:30)
[2021-10-24] MEDS: MIRTAZAPINE 15 MG TABLET PO SCH (21:30)
[2021-10-24] MEDS: DESIPRAMINE 25 MG TABLET PO SCH (21:32)
[2021-10-25] MEDS: 0.9 % SODIUM CHLORIDE 10 ML SYRINGE IV SCH (04:46)
[2021-10-25] MEDS: metroNIDAZOLE 500 MG TABLET PO SCH (04:46)
--- NOTE | 2021-10-25 07:43 | Internal Med Progress Note ---
SUBJECTIVE Subjective Patient information: Note initiated : 10/25/21 at 7:42 am Service Date, if different from initiated Date: [] Patient: Stephanie Chambers a 75 y/o F admitted on 10/21/21 for lethargy. Chief Complaint: [] Interval history: History of present illness: Ms. Chambers is a 75 year old F Presents the ED with her daughter for generalized weakness and malaise. Per the daughter she seems to have some confusion. Daughter worries about the patient not taking her home medications correctly. Patient denies fever chills or abdominal pain. No nausea vomiting or diarrhea. Patient evaluated in ED and found to have painless jaundice with a bilirubin of 5. Elevated transaminases. CT abdomen pelvis showed intrahepatic biliary dilatation. Dr. Omalley was contacted. Patient unable to go for MRCP's so we will go straight to ERCP. Daughter says her urine has been malodorous and strong lately. Urinalysis in the ED concerning for infection. Likely acute cholangitis per ERCP. Stent placed and GI will follow up for possible stent removal in 6 months. Continue to monitor with antibiotics in the hospital. started having abdominal pain after procedure 2/ States poor sleep and some nausea but otherwise no overnight event or new co mplaints. Patient had ERCP yesterday which showed some noted webbing but not nicely felt to be the cause obstruction. But did find possible patient appears to have acute cholangitis. Bilirubin improving. Transaminases improving. Urine with gram-negative bacillus 2/ No overnight event. Discharged on Avelox per GI. Patient concerned about psychiatric medications, we have been trying to obtain records from the nurse practitioners prescribing those so we can definitively know which medication she is getting at the patient is unsure of what she is taking. Per [employer] TE[employer] note, pt on mirtazapine,trazadone for insomnia, topiramate, lorazepam; desipramine prescribed by GI provider. desipramine may have been prescribed for IBS? 2/3 States poor sleep but otherwise no overnight events or new complaints. Awaiting placement 2/ No changes overnight. No new complaints. Awaiting placement. Review of Systems: denies headache/fever/chills/nausea/vomiting/chest or abdominal pain/cough/dyspnea/diarrhea. Otherwise see above. Constitutional Vitals: Vital Signs Temp Pulse Resp BP Pulse Ox 98.0 F 79 18 141/72 97 10/25/21 04:00 10/25/21 04:00 10/25/21 04:00 10/25/21 04:00 10/25/21 04:00 Period Temp Pulse Resp BP Sys/[place] Pulse Ox Last 24 Hr 97.0 F-98.4 F 77-91 16-20 138-152/61-84 93-100 Intake and Output 10/24/21 10/25/21 10/25/21 21:59 05:59 13:59 Intake Total 650 240 Output Total 310 1450 Balance 340 -1210 Weight 55.877 kg Intake & Output: Intake & Output 10/24/21 10/25/21 10/25/21 21:59 05:59 13:59 Intake Total 650 240 Output Total 310 1450 Balance 340 -1210 Weight 55.877 kg Intake: Oral 650 240 Output: Void Amount 110 600 Urine/Stool Mix 200 500 Stool 350 Other: Meal Dinner Percent of Meal Consumed 75% Urine Appearance Clear Clear Urine Color Dark Yellow Dark Yellow Urine Odor Normal Normal Stool Size Moderate Moderate Stool Color Brown Brown Stool Consistency Watery Liquid Loose # Bowel Movements 2 Exam: General: Alert, Awake, No acute Distress Eyes/N/T: EOMI, Head/Neck: neck supple, CV: RRR, 1/6 SM, Pulm: Clear b/l, no wheezing/rhonchi/rales Abd: soft, nontender, +BS x4 Ext: no clubbing/cyanosis, trace b/l LE edema Neuro: Alert, no focal deficits, moves all extremities, Skin: warm/dry OBJ DATA Labs CBC & Chem 7: 10/22/21 05:12 10/24/21 05:50 Labs: Abnormal Lab Results 10/24/21 10/23/21 10/23/21 05:50 12:52 05:16 POC Hct 35 L POC Sodium 146 H Sodium 146 H POC Potassium 3.0 L Potassium 3.1 L 3.0 L POC Chloride 112 H Chloride 113 H Carbon Dioxide 21 L POC Total CO2 19 L POC Glucose 126 H Total Bilirubin 1.5 H Direct Bilirubin 1.0 H GGT 425 H AST 59 H ALT 81 H Alkaline Phosphatase 311 H Total Protein 5.6 L Albumin 3.1 L Amylase 10/22/21 05:11 POC Hct POC Sodium Sodium POC Potassium Potassium POC Chloride Chloride Carbon Dioxide POC Total CO2 POC Glucose Total Bilirubin Direct Bilirubin GGT AST ALT Alkaline Phosphatase Total Protein Albumin Amylase 135 H Meds: Medications Hydrocodone Bitart/Acetaminophen (Hydrocodone/Apap 5/325mg Tablet) 1 tab PO Q4- 6HP PRN; Protocol PRN Reason: Per Pain Protocol Albuterol/Ipratropium (Ipratropium/Albuterol 3 Ml Ampul.Neb) 3 ml NEB Q4HP PRN PRN Reason: Shortness Of Breath Carvedilol (Carvedilol 3.125 Mg Tablet) [facility] Last Admin: 10/24/21 17:21 Dose: 3.125 mg Documented by: Desipramine HCl (Desipramine 25 Mg Tablet) 50 mg PO [facility] Last Admin: 10/24/21 21:32 Dose: Not Given Documented by: Diphenoxylate HCl/Atropine (Diphenoxylate Hcl/Atropine 1 Tablet) 1 - 2 tab PO QIDP PRN PRN Reason: Diarrhea Last Admin: 10/24/21 21:31 Dose: 2 tab Documented by: Docusate Sodium (Docusate Sodium 100 Mg Capsule) 100 mg PO BID [facility] Last Admin: 10/24/21 21:32 Dose: Not Given Documented by: Enoxaparin Sodium (Enoxaparin 40 Mg/0.4 Ml Syringe) 40 mg SQ DAILY [facility] Last Admin: 10/24/21 08:39 Dose: 40 mg Documented by: Famotidine (Famotidine 20 Mg Tablet) 40 mg PO DAILY [facility] Last Admin: 10/24/21 08:33 Dose: 40 mg Documented by: Hydromorphone HCl (Hydromorphone 0.5 Mg/0.5 Ml Syringe) 0.25 - 0.5 mg IV Q2HP PRN; Protocol PRN Reason: Per Pain Protocol Potassium Chloride 40 meq/ (Dextrose) 520 mls @ 130 mls/hr IV UD PRN PRN Reason: Potassium < 3 Magnesium Sulfate (Magnesium Sulfate) 2 gm in 50 mls @ 50 mls/hr IV UD PRN PRN Reason: Magnesium </= 1.6 Ceftriaxone Sodium 2 gm/ (Dextrose) 50 mls @ 100 mls/hr IV DAILY [facility] Last Infusion: 10/24/21 09:20 Dose: Infused Documented by: Lorazepam (Lorazepam 0.5 Mg Tablet) 0.5 mg PO HSP PRN PRN Reason: anxiety Melatonin (Melatonin 3 Mg Tablet) 3 mg PO QHS [facility] Last Admin: 10/24/21 21:29 Dose: 3 mg Documented by: Metronidazole (Metronidazole 500 Mg Tablet) 500 mg PO Q8 [facility] Last Admin: 10/25/21 04:46 Dose: 500 mg Documented by: Mirtazapine (Mirtazapine 15 Mg Tablet) 15 mg PO QHS [facility] Last Admin: 10/24/21 21:30 Dose: 15 mg Documented by: Ondansetron HCl (Ondansetron 4 Mg/2 Ml Vial) 4 mg IV Q4HP PRN PRN Reason: Nausea And Vomiting Polyethylene Glycol (Polyethylene Glycol 3350 17 Gm Packet) 17 gm PO DAILYP PRN PRN Reason: Constipation Potassium Chloride (Potassium Chloride 20 Meq Tablet) 40 meq PO UD PRN PRN Reason: Potssium is 3-3.5 Last Admin: 10/24/21 08:34 Dose: 40 meq Documented by: Potassium Chloride (Potassium Chloride 20 Meq Tablet) 40 meq PO UD PRN PRN Reason: Potassium < 3 Senna (Sennosides 1 Tablet) 2 tab PO DAILYP PRN PRN Reason: Constipation Last Admin: 10/21/21 20:29 Dose: 2 tab Documented by: Sodium Chloride (0.9 % Sodium Chloride 10 Ml Syringe) 10 ml IV Q8 [facility] Last Admin: 10/25/21 04:46 Dose: 10 ml Documented by: Trazodone HCl (Trazodone Hcl 100 Mg Tablet) 100 mg PO QHS [facility] Last Admin: 10/24/21 21:30 Dose: 100 mg Documented by: A/P Narrative A/P Narrative: A: *Acute Cholangitis: s/p ERCP with stent (10/21) *Sepsis on admit with confusion/lethargy: resolved *UTI (Klebsiella p.): *Transaminitis: 2/2 above, improving *Generalized weakness: *CKD III: *Nonischemic-CMP, EF normalized with BiV pacer: *HTN: *Depression/anxiety: *GERD: *UC: on budesonide P: -Rocephin/Flagyl -Dr. Omalely following, f/u outpt, d/c on Avelox 400mg daily to complete 10 days course abx per GI -cont gino BB, Aldactone,psych meds -pt/ot -CM for placement -Per [employer] TE[employer]ER note, pt on mirtazapine,trazadone for insomnia, topiramate, lorazepam; desipramine prescribed by GI provider. desipramine may have been prescribed for IBS? -ppx: lovenox / home H2 Time Spent With Patient Time: Total time spent is greater than 50% in coordination of care (as documented) at patient's floor/unit and/or counseling patient: QUALITY VTE Deep Vein Thrombosis/Pulmonary Embolism Present on Admission: No
[2021-10-25] MEDS: CARVEDILOL 3.125 MG TABLET PO SCH (08:17)
[2021-10-25] MEDS: DOCUSATE SODIUM 100 MG CAPSULE PO SCH (09:24)
[2021-10-25] MEDS: FAMOTIDINE 20 MG TABLET PO SCH (10:02)
[2021-10-25] MEDS: DIPHENOXYLATE HCL/ATROPINE 1 TABLET PO PRN (10:02)
[2021-10-25] MEDS: cefTRIAXone 2 GM in DEXTROSE 5% IN WATER 50 ML IV SCH (10:06)
[2021-10-25] MEDS: ENOXAPARIN 40 MG/0.4 ML SYRINGE SQ SCH (10:11)
--- NOTE | 2022-03-10 07:17 | Emergency Department Note ---
HPI General Chief complaint: Altered Mental Status Stated complaint: lethargy Time Seen by Provider: 10/20/21 19:11 Source: patient Mode of arrival: ambulatory Limitations: no limitations History of Present Illness HPI Narrative: Narrative: see other note patient admitted to hospitalist Related Data Home Medications Medication Instructions Recorded Confirmed mirtazapine 15 mg tablet (Remeron) 15 mg PO QHS tab 04/23/21 01/27/22 Purified Protein (PPD) See Rx Instructions .ROUTE .COMPLEX 02/13/22 magnesium hydroxide 400 mg/5 mL 15 ml PO QDAY PRN 02/13/22 oral suspension (Milk of Magnesia) sodium phosphates 19 gram-7 118 ml NM ONCE 02/13/22 gram/118 mL enema (Fleet Enema) Previous Rx's Medication Instructions Recorded diphenoxylate-atropine 2.5 1 - 2 tab PO QIDP PRN #10 tab 10/25/21 mg-0.025 mg tablet (Lomotil) potassium chloride 10 mEq 10 meq PO QDAY #90 tab 01/07/22 tablet,extended release lisinopril 5 mg tablet 5 mg PO DAILY #30 tab 01/30/22 lorazepam 0.5 mg tablet 0.5 mg PO BID #60 tab 01/30/22 metoprolol tartrate 25 mg tablet 25 mg PO BID #60 tab 01/30/22 spironolactone 25 mg tablet 25 mg PO DAILY #30 tab 01/30/22 trazodone 100 mg tablet 100 mg PO QHS #30 tab 01/30/22 oxygen #1 ea 03/05/22 furosemide 40 mg tablet (Lasix) 40 mg PO BID #60 tab 03/06/22 Allergies Allergy/AdvReac Type Severity Reaction Status Date / Time lactose Allergy Unknown Unknown Verified 01/27/22 11:40 Proton Pump Inhibitors AdvReac Intermediate Worsening Verified 01/27/22 11:40 Collagenous Colitis aspirin AdvReac Mild Stomach Verified 01/27/22 11:40 pain, diarrhea spironolactone AdvReac Mild Diarrhea Verified 01/27/22 11:40 Review of Systems ROS ROS Narrative: Narrative: Constitutional: Denies fever or chills Eyes: Denies vision change ENT ED: Denies throat pain Cardiovascular: Denies chest pain or palpitations Respiratory: Denies shortness of breath or cough Gastrointestinal: Denies abdominal pain, nausea or vomiting Genitourinary: Denies dysuria or frequency Musculoskeletal: Denies back pain or joint swelling Integumentary: Denies rash Neurological: Reports weakness; Denies headache, numbness or dizziness Psychiatric: Denies anxiety Endocrine: Reports fatigue Hematological/Lymphatic: Denies easy bleeding PFSH Narrative Patient History Narrative: Narrative: Medical/Surgical/Family History All Active Problems (Updated 01/27/22 @ 18:04 by Oswaldo Wetzel MD) Major depressive disorder (Acute) Nonischemic cardiomyopathy (Acute) Failure to thrive (Acute) Acute hypoxemic respiratory failure (Acute) Otitis media (Chronic) Anemia (Chronic) Acid reflux (Chronic) Breast cancer (Chronic) Depression (Chronic) CHF (congestive heart failure) (Chronic) Insomnia (Chronic) Migraine (Chronic) Osteoporosis (Chronic) Collagenous colitis (Chronic) Geriatric health maintenance (Chronic) Vitamin D deficiency (Chronic) Hyperlipidemia (Chronic) Elevated serum creatinine (Chronic) Sinus infection (Chronic) CKD (chronic kidney disease) (Chronic) LBBB (left bundle branch block) (Chronic) Dyspnea on exertion (Chronic) Peripheral cyanosis (Chronic) Cardiomyopathy (Chronic) Cardiorenal syndrome with renal failure (Chronic) 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) Episode of syncope (Chronic) Cough secondary to angiotensin converting enzyme inhibitor (ANGELITA-I) (Chronic) Anxiety (Chronic) Medicare annual wellness visit, initial (Acute) Hypokalemia with normal pH (Chronic) Hip bursitis, left (Chronic) CKD stage G3b/A2, GFR 30-44 and albumin creatinine ratio 30-299 mg/g (Chronic) Presence of cardiac defibrillator (Chronic) Chronic pain (Chronic) Low back pain (Chronic) Lumbar radiculopathy (Acute) Dizzy (Acute) Generalized weakness (Chronic) Pyuria (Acute) Hyperbilirubinemia (Acute) UTI (urinary tract infection) (Acute) Jaundice (Acute) Acute exacerbation of CHF (congestive heart failure) (Acute) Pneumonia (Acute) Asymptomatic microscopic hematuria (Acute) Medical History Acid reflux Anemia Anxiety Asymptomatic microscopic hematuria Breast cancer 1979 Cardiomyopathy Cardiorenal syndrome with renal failure Great result with biventricular resynchronization therapy Pacemaker is interfering with the ability to perform MRI of the biliary system CHF (congestive heart failure) On ARB and low-dose beta-cinthia with loop diuretic PPM/AICD in place Cholangitis Chronic pain CKD (chronic kidney disease) Technically this is CKD G3 B/A2 on maximal ARB based on her systolic hypotension for renal protective and antiproteinuric effect Collagenous colitis Cough secondary to angiotensin converting enzyme inhibitor (ANGELITA-I) Stap ACEi Depression Dizzy Dyspnea on exertion Elevated serum creatinine Episode of syncope By Hx, vasovagal or post tussive or cardiogenic Fall Generalized weakness Geriatric health maintenance 08/2017 Hip bursitis, left History of tobacco use Hyperlipidemia Hypertensive heart and chronic kidney disease stage 3 Stable chronic kidney disease level III b Hypokalemia with normal pH Insomnia Jaundice LBBB (left bundle branch block) Low back pain Lumbar radiculopathy Medicare annual wellness visit, initial Migraine Osteoporosis due to chemo, currently taking calcium and vitamin D 09/2016 Otitis media Peripheral cyanosis Presence of cardiac defibrillator Pyuria RLS (restless legs syndrome) Sinus infection Ulcerative colitis Vitamin D deficiency Surgical History H/O colonoscopy 2012 Dr. Kendrick, collagenous collitis repeat in 10 years H/O mastectomy 1979 Radical mastectomy with implant reconstruction revised 01/2016 H/O: hysterectomy Hx of breast implant 01/2016 Status post internal cardiac defibrillator procedure placed 11/2011 will have monthly interrogations due to being near the end of battery life Family History Mother Dementia Hypertension, essential Migraine Father Heart attack Grandmother Tuberculosis Maternal Social History Smoking Status: Never smoker Alcohol Intake Frequency: does not drink Substance Use: does not use Exam Narrative Narrative: Narrative: General Limitations: no limitations Course Vital Signs Vital signs: Vital Signs Temperature 98.0 F 10/20/21 19:09 Pulse Rate 96 H 10/20/21 19:09 Respiratory Rate 20 10/20/21 19:09 Blood Pressure 145/69 10/20/21 19:09 Pulse Oximetry (%) 98 10/20/21 19:09 Temperature 97.3 F 10/25/21 11:10 Pulse Rate 87 10/25/21 11:10 Respiratory Rate 22 10/25/21 11:10 Blood Pressure 132/65 10/25/21 11:10 Pulse Oximetry (%) 99 10/25/21 11:10 MDM MDM Narrative Medical decision making narrative: Narrative: Lab Data Result diagrams: 10/22/21 05:12 10/24/21 05:50 Labs: Lab Results 10/20/21 10/20/21 10/20/21 Range/Units 20:40 20:40 20:46 WBC 6.7 (4.5-11.0) K/mcL RBC 3.82 (3.59-5.38) M/mcL Hgb 11.6 (11.2-15.7) g/dL Hct 35.7 (34.1-44.9) % MCV 93.5 (80.0-100.0) fL MCH 30.4 (26.0-34.0) pg MCHC 32.5 (31.0-36.0) g/dL RDW 13.5 (11.5-14.5) % Plt Count 182 (140-440) K/mcL MPV 9.5 (7.4-10.4) fL Neut % (Auto) 75.8 (38.0-78.0) % Lymph % (Auto) 14.4 L (15.5-49.0) % [place] % (Auto) 9.0 (1.0-12.0) % Eos % (Auto) 0.3 (0.0-7.0) % Baso % (Auto) 0.5 (0.0-2.0) % Lymph # (Auto) 0.96 L (1.50-4.80) K/mcL [place] # (Auto) 0.60 (0.10-0.90) K/mcL Eos # (Auto) 0.02 (0.00-0.70) K/mcL Baso # (Auto) 0.03 (0.00-0.30) K/mcL Absolute Neutrophils 5.04 (1.80-8.00) K/mcL Sodium 136 (133-145) mmol/L Potassium 3.3 (3.3-5.1) mmol/L Chloride 104 (96-108) mmol/L Carbon Dioxide 21 L (22-30) mmol/L Anion Gap 11.0 (8.0-16.0) BUN 17 (8-23) mg/dL Creatinine 0.9 (0.6-1.1) mg/dL GFR Calculation 62 Glucose 102 (70-105) mg/dL Calcium 9.6 (8.6-10.4) mg/dL Total Bilirubin 5.0 H (0.1-1.0) mg/dL AST 328 H (<32) U/L ALT 151 H (<40) U/L Alkaline Phosphatase 151 H (39-117) U/L Total Protein 6.6 (5.9-8.4) gm/dL Albumin 3.8 (3.2-5.2) gm/dL Globulin 2.8 (2.2-3.7) gm/dL Albumin/Globulin Ratio 1.4 (1.0-2.3) Urine Color Stephanie Urine Appearance Cloudy A (Clear) Urine pH 6.0 (5.0-9.0) Ur Specific [place] 1.025 (1.000-1.035) Urine Protein 30 mg/dl A (Negative) mg/dL Urine Glucose (UA) Negative (Negative) mg/dL Urine Ketones Trace A (Negative) mg/dL Urine Occult Blood Negative (Negative) robert/mcL Urine Nitrate Negative (Negative) Urine Bilirubin Large A (Negative) mg/dL Urine Urobilinogen Normal mg/dL Ur Leukocyte Esterase Small A (Negative) /uL Urine RBC 0 (0-3) /hpf Urine WBC > 182 H (0-4) /hpf Ur Squamous Epith Cells 0 (0-4) /hpf Urine Bacteria Few A (0) /hpf Urine Mucus Few A (None) /hpf Ur Culture Indicated? yes ED POC Tests ED POC Tests: BRIAN - SARS Antigen Negative Discharge Plan Patient/Caregiver Discharge Instructions Pt seen by SLASH TRIMMER/PA only: No Clinical Impression: Hyperbilirubinemia, UTI (urinary tract infection) Activity: increase activity as tolerated Patient Disposition: Xfer As Inpt ([facility]) Condition: Fair Discharge Date/Time: 10/21/21 11:12
== END 2021-10-25 11:40 | DRG 871 ==
LOC: ED 19:09 → MEDSUR 10-21 11:12
PROVIDERS: ADMIT Internal Medicine; ATTEND Internal Medicine